=== PATIENT | male | born 1935 | race Caucasian/White ===

== ENCOUNTER 2016-05-21 06:37 | Emergency (ER) ==
[2016-05-21 06:57] VITALS: BP 151/86; TEMP 99
[2016-05-21 07:11] VITALS: BMI 33.3
[2016-05-21 07:27] LABS: BASOPHILS # (AUTO) 0.1 K/uL (0-0.2); BASOPHILS % (AUTO) 0.6 % (0.0-3.0); HEMATOCRIT 44.8 % (42.0-52.0); HEMOGLOBIN 14.5 g/dl (14.0-18.0); IMMATURE GRANULOCYTE % (AUTO) 0.9 % (0.0-5.0); LYMPHOCYTES # (AUTO) 0.3 K/uL (0.60-3.4); LYMPHOCYTES % (AUTO) 3.3 (10.0-50.0); MEAN CORPUSCULAR HEMOGLOBIN 28.3 pg (27.0-31.0); MEAN CORPUSCULAR HGB CONC 32.4 (31.8-35.4); MEAN CORPUSCULAR VOLUME 87.5 fl (80.0-94.0); MONOCYTES # (AUTO) 0.9 K/uL (0.4-2.0); MONOCYTES % (AUTO) 8.3 (0-10); NEUTROPHILS # (AUTO) 8.9 K/ul (2.0-6.9); NEUTROPHILS % (AUTO) 86.9; PLATELET COUNT 135 10^3/uL (140-440); RED BLOOD COUNT 5.12 10^6/ul (4.70-6.10); WHITE BLOOD COUNT 10.25 K/ul (4.2-10.2)
[2016-05-21 07:31] LABS: ABG BASE EXCESS 4 (-2.0-2.0); ABG HCO3 27.7 (22.0-26.0); ABG PCO2 37.8 mmHg (35-45); ABG PH 7.473 (7.35-7.45); ABG TCO2 29 (22.0-28.0)
[2016-05-21] MEDS ORDERED: BACTROBAN TP STA (08:01)
--- NOTE | 2016-05-21 08:02 | CT ---
EXAM: CT head without contrast. HISTORY: Initial presentation for head trauma due to a fall. COMPARISON: None. TECHNIQUE: Multiple axial images of the brain were obtained from the skull base through the vertex without intravenous contrast. FINDINGS: There is no intracranial hemorrhage or extraaxial collection. The sharif-white differentia tion is maintained without evidence for acute large vascular territory infarction. There are areas of periventricular and subcortical white matter low attenuation. The cortical sulci and cerebral ve ntricles are symmetrically enlarged. The basal cisterns are well visualized. There is no hydroceph alus, mass effect, or midline shift. The paranasal sinuses and mastoid air cells are clear. The ca lvarium is intact. Atherosclerotic calcifications are present. IMPRESSION: 1. No acute intracranial abnormality. 2. Chronic small vessel ischemic changes and atrophy.
[2016-05-21 08:07] LABS: BILIRUBIN,URINE Negative (NEGATIVE); KETONES,URINE 2+ (NEGATIVE); LEUKOCYTE ESTERASE ,URINE Negative (NEGATIVE); NITRITE,URINE Negative (NEGATIVE); PROTEIN,URINE 1+ (NEGATIVE); URINE, BLOOD 3+ (NEGATIVE)
[2016-05-21 08:08] LABS: ADD URINE MICROSCOPIC YES
[2016-05-21 08:19] LABS: ALBUMIN 3.6 g/dL (3.4-5.0); ALBUMIN/GLOBULIN RATIO 1.16; ANION GAP 17.4; BILIRUBIN,TOTAL 0.94 mg/dL (0.00-1.20); BUN/CREATININE RATIO 14.54; CALCIUM 9.3 mg/dL (8.2-10.2); CREATININE 1.1 mg/dL (0.60-1.10); POTASSIUM 4.4 mmol/L (3.5-5.1); TOTAL PROTEIN 6.7 g/dL (5.8-8.1); TROPONIN I 0.377 ng/ml (0.0000-0.4000)
--- NOTE | 2016-05-21 08:21 | CT ---
EXAM: CT scan cervical spine HISTORY: Fall COMPARISON: None. FINDINGS: Contiguous axial images obtained through the cervical spine utilizing 2-mm collimation. Sagittal and coronal reconstructions were imaged and reviewed.. The vertebral bodies are normal in height and alignment. Facet joints are intact. Degenerate disc disease is noted at C6-C7 and C7-T1 . There is multilevel central canal and foraminal narrowing. IMPRESSION: Degenerate disc disease most prominent C6-C7 and C7-T1. Multilevel central canal and foraminal stenosis without acute findings.
[2016-05-21 08:24] LABS: PROTHROMBIN TIME 24.5 SEC (9.3-11.0)
[2016-05-21 08:26] LABS: CREATINE KINASE MB 3.5 ng/ml (0.0-3.6)
--- NOTE | 2016-05-21 08:27 | CT ---
EXAM: CT scan thoracic spine HISTORY: Fall COMPARISON: None. FINDINGS: Contiguous axial images obtained through the thoracic spine utilizing 3-mm collimation. Sagittal coronal reconstructions were imaged and reviewed.. Several mild chronic wedge compression deformities are seen in the mid dorsal spine. Extensive ventral spondylitic changes are noted throu ghout the thoracic spine. No acute fracture or dislocation. Facet joints are intact. IMPRESSION: Stable mild chronic wedge compression deformities mid dorsal spine without acute findings. Multilevel spondylitic changes.
--- NOTE | 2016-05-21 08:27 | CT ---
EXAM: CT chest without contrast. HISTORY: Initial presentation for chest trauma due to a fall. COMPARISON: Radiograph 12/04/2011. TECHNIQUE: Multiple axial images of the chest were obtained without intravenous contrast. Images w ere reformatted in the sagittal and coronal planes. Three-dimensional reconstructed images were crea alejandra on an independent workstation. FINDINGS: Evaluation for lymphadenopathy is limited due to lack of intravenous contrast. Heart siz e is at the upper limits normal. No pericardial effusion identified. Atherosclerotic calcification s present. Calcified granulomatous changes noted bilaterally. There are nodular densities within the superior segment of the left lower lobe, most which are ill-defined. The largest discrete nodule measures 0. 4 cm on axial image 32. No pleural effusion or pneumothorax identified. Degenerative changes are present throughout the spine. Possible old left posterolateral ninth rib f racture. No acute rib fracture identified. Limited images of the upper abdomen demonstrate multipl e exophytic renal cortical lesions bilaterally, many of which measure fluid density, largest on the left measuring up to 6.8 x 5.7 cm. There is suggestion of a isodense mass in the left upper pole me asuring up to 5 cm on axial image 67 with internal density of 26 HU. Other lesions are also isodens e. The liver is diffusely low density. IMPRESSION: 1. No acute post-traumatic abnormality of the chest. 2. Left lower lobe nodules require follow-up CT in 6 months. 3. Indeterminate bilateral renal cortical lesions. Non-emergent abdominal MRI recommended for furt her evaluation.
--- NOTE | 2016-05-21 08:30 | CT ---
EXAM: CT lumbar spine without contrast. HISTORY: Initial presentation for back injury due to a fall. COMPARISON: None available. TECHNIQUE: Multiple axial images of the lumbar spine were obtained without intravenous contrast. I mages were reformatted in the sagittal and coronal planes. FINDINGS: Slight retrolisthesis of L5 on S1 suggested. Alignment is otherwise normal. Prevertebra l body heights are maintained. There is mild loss of disc height at L4-5. Disc heights are otherwi se normal. No fracture identified. Paravertebral soft tissues without acute abnormality. Multilev el disc osteophyte formation and facet arthropathy noted which cause mild central canal stenosis at L1-2 through L4-5 and cause generally minimal to mild neural foraminal narrowing throughout the lumb ar spine, greater in the lower lumbar spine. Paravertebral soft tissues without acute abnormality. Since the atherosclerotic calcifications present. Retroperitoneal clips noted. Exophytic renal co rtical lesions bilaterally are incompletely imaged, at least one which measures soft tissue density. IMPRESSION: 1. No acute fracture. 2. Generally mild degenerative changes. 3. Indeterminate renal cortical lesions. Abdominal MRI recommended for further evaluation.
--- NOTE | 2016-05-21 08:42 | CT ---
EXAM: CT scan pelvis without contrast HISTORY: Fall COMPARISON: None. FINDINGS: It was axial images obtained through the pelvis without contrast utilizing 3-mm collimati on. Sagittal and coronal reconstructions were imaged and reviewed.. There is moderate prostatic en largement with calcification along the posterior margin. There is diverticulosis diverticulitis. T here is moderate ASVD. There is moderate generalized osteopenia. Degenerative changes are seen in t he bilateral hips and lower lumbar spine. There is mild buckling of the lateral and medial cortical margins in the left supra-acetabular region which is likely related to sequela of old fracture Sag ittal images reveal a vertical lucency in the left supra-acetabular region which also may be related to chronic fracture however a subacute/acute fracture at the site is not excluded.. If symptoms ar e referable to this side MRI may be helpful for further characterization. IMPRESSION: Degenerative changes as described. Subtle findings in the left supra-acetabular region which may be related to remote fracture.. There is a vertical lucency seen only on sagittal images raising the possibility of superimposed subacute /acute fracture at this site. If symptoms are referable to this area suggest MRI for further charac terization.
--- NOTE | 2016-05-21 08:48 | ED.PDOC ---
General ED Provider: Dr. SANDRO DIEGO-ER Chief Complaint: Fall Stated Complaint: my legs are weak 2 days ago Time Seen by Physician: 06:45 Mode of Arrival: Ambulance Information Source: Patient, Family, EMT Exam Limitations: No limitations Primary Care Provider: NEVILLE WOOD Nursing and Triage Documentation Reviewed and Agree: Yes Neurological Complaint Exam - Weakness Complaint/Exam Last Known Well: 2 days ago Onset: Sudden Symptoms Are: Still present Timing: Constant Initial Severity: Mild Current Severity: Moderate Aggravating: Reports: None Alleviating: Reports: None Associated Signs and Symptoms: Reports: Short of air Cardiac Risk Factors: Reports: Hypertension, Diabetes CVA Risk Factors: Reports: None Related Surgical History: Reports: None JVD Present: No Carotid Bruit Present: No Glascow Coma Scale (see protocol): 15 Nystagmus Present: No Gag Reflex Present: Yes Meningeal Signs Positive: No Focal Weakness: Present: RLE, LLE Focal Sensory Loss: Present: RLE, LLE Gait: Ataxic [id number]: Normal Findings Romberg Test Positive: No Babinski Sign: Negative Right, Negative Left Heel to Toe Normal: Yes Worthington-Hallpike Test Positive: No Differential Diagnoses: Other Quality Indicator For Non-Traumatic Chest Pain/Syncope: EKG Performed Review of Systems - Review Of Systems Constitutional: Reports: No symptoms Eyes: Reports: No symptoms Ears, Nose, Mouth, Throat: Reports: No symptoms Respiratory: Reports: No symptoms Cardiac: Reports: No symptoms GI: Reports: No symptoms : Reports: No symptoms Musculoskeletal: Reports: No symptoms Skin: Reports: No symptoms Neurological: Reports: Numbness, Unable to move lower ext, Weakness Endocrine: Reports: No symptoms Hematologic/Lymphatic: Reports: No symptoms All Other Systems: Reviewed and Negative Past Medical History - Past Medical History Endocrine: Reports: DM 2 Cardiovascular: Reports: Hypertension Respiratory: Reports: COPD Hematological: Reports: Other Gastrointestinal: Reports: None Genitourinary: Reports: Unknown Neuro/Psych: Reports: None Musculoskeletal: Reports: Back Pain, Joint Pain Cancer: Reports: None - Surgical History General Surgical History: Reports: Unknown - Family History Family History: Reports: Unknown - Social History Smoking Status: Former smoker Hx Substance Use: No Alcohol Screening: None Lives: With family - Immunizations Tetanus Shot up to Date: No (unsure) Physical Exam - Physical Exam Appearance: Well-appearing, No pain distress, Well-nourished Eyes: SHIRAZ, EOMI, Conjunctiva clear ENT: Ears normal, Nose normal, Oropharynx normal Neck: Supple Respiratory: Airway patent Cardiovascular: RRR, Pulses normal, No rub, No murmur GI/: Soft Musculoskeletal: Normal strength Skin: Warm, Dry, Normal color Neurological: Alert, Oriented, Focal Deficit Psychiatric: Affect appropriate, Mood appropriate Interpretation - Radiology Interpretation Radiology Interpretation By: ED Physician Radiology Results: Negative Exam Interpreted: CT Scan - EKG Interpretation Time of EKG #1: 08:51 Rate: Normal Rhythm: Sinus Ectopy: None Fancy Gap: NL ST Segment: Normal Interpretation: nsr Re-Evaluation - Re-Evaluation Time of Re-Evaluation: 08:51 Status: Unchanged Vital Signs Stable: Yes Pain Level: 0 Appearance: NAD Lungs: Clear Skin: Warm and Dry Neuro: Alert and Oriented X3 CV: RRR Critical Care Note - Critical Care Note Total Time (mins): 0 Course - Course Hematology/Chemistry: 05/21/16 07:20 05/21/16 07:20 Orders, Labs, Meds: Lab Review 05/21/16 07:20 WBC 10.25 H RBC 5.12 Hgb 14.5 Hct 44.8 MCV 87.5 MCH 28.3 MCHC 32.4 RDW Coeff of Marissa 13.3 Plt Count 135 L Immature Gran % (Auto) 0.9 Neut % (Auto) 86.9 Lymph % (Auto) 3.3 L Marshall % (Auto) 8.3 Eos % (Auto) 0.0 Baso % (Auto) 0.6 Immature Gran # (Auto) 0.1 Neut # 8.9 H Lymph # 0.3 L Marshall # 0.9 Eos # 0.0 Baso # 0.1 PT 24.5 H INR 2.38 D-Dimer 1.39 Puncture Site R brach O2 Saturation 94.0 L ABG pH 7.473 H ABG pCO2 37.8 ABG pO2 67.0 L ABG HCO3 27.7 H ABG Total CO2 29 H ABG Base Excess 4 H Gustavo Test + FiO2 % 21.0 Sodium 132 L Potassium 4.4 Chloride 95 L Carbon Dioxide 24 Anion Gap 17.4 BUN 16 Creatinine 1.10 Estimated GFR (MDRD) 64.00 BUN/Creatinine Ratio 14.54 Glucose 341 H Hemoglobin A1c 8.1 H Calcium 9.3 Total Bilirubin 0.94 AST 26 ALT 24 Alkaline Phosphatase 46 L Total Creatine Kinase 314 CK-MB (CK-2) 3.5 CK-MB (CK-2) % 1.93397 Troponin I 0.3770 Total Protein 6.7 Albumin 3.6 Globulin 3.1 Albumin/Globulin Ratio 1.16 TSH 0.530 Urine Color Kaylin Urine Clarity Slightly Urine pH 6.0 Ur Specific Fate 1.015 Urine Protein 1+ Urine Glucose (UA) 2+ Urine Ketones 2+ Urine Blood 3+ Urine Nitrite Negative Urine Bilirubin Negative Urine Urobilinogen 0.2 Ur Leukocyte Esterase Negative Urine Microscopic RBC Tntc Ur Squamous Epith Cells Not present Orders Category Date Time Status ABG DRAW REQUEST Stat CARDIO 05/21/16 07:30 Completed EKG-(ED ONLY) Stat CARDIO 05/21/16 07:07 Completed Business Area Manager [ED [facility] TECH APPLIED] .ONCE EMERGENCY 05/21/16 07:09 Active Wound care [ED WOUND CARE] .ONCE EMERGENCY 05/21/16 08:01 Active ARTERIAL BLOOD GAS [ABG] Stat LAB 05/21/16 07:20 Completed CBC W/ AUTO DIFF Stat LAB 05/21/16 07:20 Completed COMPREHENSIVE METABOLIC PANEL Stat LAB 05/21/16 07:20 Completed CREATINE KINASE Stat LAB 05/21/16 07:20 Completed D-DIMER Stat LAB 05/21/16 07:20 Completed HEMOGLOBIN A1C Stat LAB 05/21/16 07:20 Completed PT WITH INR Stat LAB 05/21/16 07:20 Completed TROPONIN I Stat LAB 05/21/16 07:20 Completed TSH [THYROID STIMULATING HORMONE] Stat LAB 05/21/16 07:20 Completed URINALYSIS C & S IF INDICATED Stat LAB 05/21/16 07:20 Completed Mupirocin [Bactroban] MEDS 05/21/16 08:01 Discontinued 1 applic TP ONCE STA CT ABDOMEN/PELVIS WO CONTRAST Stat RADS 05/21/16 08:[address] CERVICAL SPINE W/O CONTRAST Stat RADS 05/21/16 07:[address] CHEST W/O CONTRAST Stat RADS 05/21/16 07:[address] HEAD W/O CONTRAST Stat RADS 05/21/16 07:[address] LUMBAR SPINE W/O CONTRAST Stat RADS 05/21/16 07:[address] PELVIS W/O CONTRAST Stat RADS 05/21/16 07:[address] THORACIC SPINE W/O CONTRAST Stat RADS 05/21/16 07:08 Completed Medications Discontinued Medications Generic Name Dose Route Start Last Admin Trade Name Tejas PRN Reason Stop Dose Admin Mupirocin 1 applic 05/21/16 08:01 05/21/16 08:06 Bactroban TP 05/21/16 08:02 1 applic ONCE STA Administration Vital Signs: Temp Pulse Resp BP Pulse Ox 05/21/16 06:37 99 F 86 22 151/86 H 95 Departure - Departure Time of Disposition: 08:51 Disposition: TSF SHORT-TRM HOSP Discharge Problem: Weakness of both lower extremities Instructions: Weakness (ED) Condition: Stable Pt referred to PMD for follow-up: Yes Allergies/Adverse Reactions: Allergies cephalexin [From Keflex] Adverse Reaction (Verified 05/21/16 07:36) Itching erythromycin base Adverse Reaction (Verified 05/21/16 07:36) Iodinated Contrast Media - Oral and Adverse Reaction (Verified 05/21/16 07:36) Unconsciousness levofloxacin [From Levaquin] Adverse Reaction (Verified 05/21/16 07:36) Hives Penicillins Adverse Reaction (Verified 05/21/16 07:36) Rash povidone-iodine [From Betadine] Adverse Reaction (Verified 05/21/16 07:36) procaine [From Novocain] Adverse Reaction (Verified 05/21/16 07:36) soap [From Betadine] Adverse Reaction (Verified 05/21/16 07:36) Sulfa (Sulfonamide Antibiotics) Adverse Reaction (Verified 05/21/16 07:36) Home Medications: Ambulatory Orders Albuterol Sulfate [Proair Hfa] 2 puff IH BID 05/21/16 Alprazolam [Xanax] 12.5 mg PO BID 05/21/16 Aspirin [Ecotrin] 81 mg PO DAILY 05/21/16 Atenolol 100 mg PO DAILY 05/21/16 Finasteride 5 mg PO DAILY 05/21/16 Fluticasone Propionate 220 Mcg [Flovent Hfa 220 Mcg] 2 puff INH BID 05/21/16 Fluticasone Propionate [Flovent Diskus] 50 mcg IH BID 05/21/16 Glipizide [Glipizide ER] 1 tab PO DAILY 05/21/16 Hydrochlorothiazide 12.5 mg PO DAILY 05/21/16 Lisinopril 20 mg PO DAILY 05/21/16 Metformin HCl [Glucophage] 500 mg PO DAILY 05/21/16 Pyridostigmine [place] 60 mg PO QID 05/21/16 Tamsulosin HCl [Flomax] 1 cap PO BID 05/21/16 Thiamine HCl [B-1] 100 mg PO DAILY 05/21/16 Warfarin Sodium [Coumadin] 4 mg PO DIRECTED 05/21/16 Warfarin Sodium [Coumadin] 5 mg PO DIRECTED 05/21/16 Transfer Form Completed: Yes Disposition Discussed With: Patient, Family
--- NOTE | 2016-05-21 09:04 | CT ---
EXAM: CT Abdomen without contrast. CT Pelvis without contrast. HISTORY: Initial presentation for abdominal trauma due to a fall. Hematuria. COMPARISON: None available. TECHNIQUE: Multiple axial images of the abdomen and pelvis were obtained without intravenous contra st. Images were reformatted in the coronal plane. FINDINGS: Please note that evaluation of the abdominal and pelvic structures is limited due to lack of intravenous contrast. Lung bases are grossly clear. Degenerative changes present throughout the spine. Subtle lucency in the superior left acetabulum on axial image 135-139 may relate to remote trauma. Liver is diffusely low density. Gallbladder is absent. The pancreas, spleen, adrenal glands are un remarkable. There is suggestion of a rounded isodense mass in the left upper pole collecting system measuring ro ughly 5 cm in diameter on axial image 42. Numerous additional exophytic lesions are seen in both ki dneys, many of which were fluid density although a few additional lesions are also isodense. Additi onally in the right perinephric fat laterally. There is a 2.2 x 2.1 cm soft tissue nodule on axial image 84. No calcified renal stones or hydronephrosis identified. No ureteral calculi are seen. B ladder appears unremarkable save for small diverticulum off the anterior wall on axial image 126. P rostate is enlarged measuring at least 8.1 x 6.3 x 5.9 cm with peripheral calcifications. Lipoma is seen in the rectum on axial image 122. There is no evidence for bowel obstruction. Divert icula are present in the sigmoid colon. The appendix is not seen. Small fat-containing umbilical he rnia noted. No free fluid or free air identified. A 0.6 cm perirectal lymph node noted on axial im age 89 small pelvic sidewall lymph nodes are present. Clips seen in the retroperitoneum. Extensiv e atherosclerotic calcifications are present. There is mild subcutaneous edema in the anterior righ t groin which is incompletely imaged. IMPRESSION: 1. No acute post-traumatic abnormality in the abdomen or pelvis. 2. Indeterminate renal cortical lesions bilaterally. Additional indeterminate right retroperitonea l soft tissue nodule. Correlation with non-emergent abdominal MRI recommended for further evaluatio n. 3. Marked prostatic enlargement. 4. Small urinary bladder diverticulum. 5. Diverticulosis. Rectal lipoma. 6. Fatty infiltration of the liver. 7. Question old left superior acetabular fracture. 8. Mild subcutaneous edema in the right groin. Correlate for contusion versus infection.
== END 2016-05-21 09:35 | disposition short-term general hospital (02) ==
LOC: ED 06:37
DX: R53.1 Weakness (principal); R06.02 Shortness of breath; I10 Essential (primary) hypertension; E11.9 Type 2 diabetes mellitus without complications; W19.XXXA Unspecified fall, initial encounter; Z79.01 Long term (current) use of anticoagulants; Z79.899 Other long term (current) drug therapy
CPT/HCPCS: 36415; 80053; 81001; 82550; 82553; 82803; 83036; 84443; 84484; 85025; 85379; 85610; 93005; 93010; 99285

== ENCOUNTER 2016-05-21 09:44 | Outpatient (CLI) ==
[2016-05-21 07:11] VITALS: BMI 33.3
== END 2016-05-21 09:45 ==
LOC: AMBL 09:44
PROVIDERS: ATTEND Family Medicine
DX: R06.9 Unspecified abnormalities of breathing (principal); R53.1 Weakness; W19.XXXA Unspecified fall, initial encounter

== ENCOUNTER 2016-06-02 12:47 | Outpatient (CLI) ==
[2016-06-02 13:55] LABS: BASOPHILS # (AUTO) 0.1 K/uL (0-0.2); BASOPHILS % (AUTO) 0.9 % (0.0-3.0); EOSINOPHILS # (AUTO) 0.1 K/ul (0.0-0.7); EOSINOPHILS % (AUTO) 2.1 % (0.0-7.0); HEMATOCRIT 41.2 % (42.0-52.0); HEMOGLOBIN 12.5 g/dl (14.0-18.0); IMMATURE GRANULOCYTE % (AUTO) 0.7 % (0.0-5.0); LYMPHOCYTES # (AUTO) 1.1 K/uL (0.60-3.4); MEAN CORPUSCULAR HEMOGLOBIN 28.5 pg (27.0-31.0); MEAN CORPUSCULAR HGB CONC 30.3 (31.8-35.4); MEAN CORPUSCULAR VOLUME 94.1 fl (80.0-94.0); MONOCYTES # (AUTO) 0.7 K/uL (0.4-2.0); MONOCYTES % (AUTO) 12.7 (0-10); NEUTROPHILS # (AUTO) 3.6 K/ul (2.0-6.9); NEUTROPHILS % (AUTO) 63.6; PLATELET COUNT 169 10^3/uL (140-440); RED BLOOD COUNT 4.38 10^6/ul (4.70-6.10); WHITE BLOOD COUNT 5.66 K/ul (4.2-10.2)
--- NOTE | 2016-06-02 13:59 | US ---
EXAM: Right lower extremity venous doppler. HISTORY: Right lower extremity pain and swelling. Previous deep vein thrombosis. Patient on antic oagulation. COMPARISON: None available. TECHNIQUE: Multiple grayscale and color doppler images were obtained. FINDINGS: There is normal flow, compressibility and augmentation of flow within the right common fe moral, greater saphenous, profunda, popliteal, anterior tibial and peroneal veins. There is intralum inal echogenicity with only partial color flow and compressibility within the mid to distal right dewitt perficial femoral vein. The right posterior tibial vein was not identified. Subcutaneous edema note d in the calf. IMPRESSION: Nonocclusive thrombus in the mid to distal right superficial femoral artery. Comment: Findings were communicated to Dr. Hargrove by the technologist at the time of exam ashish devries
[2016-06-02 14:14] LABS: ALBUMIN 2.9 g/dL (3.4-5.0); ALBUMIN/GLOBULIN RATIO 0.85; ANION GAP 10.4; BILIRUBIN,TOTAL 0.73 mg/dL (0.00-1.20); CALCIUM 9.3 mg/dL (8.2-10.2); CREATININE 0.95 mg/dL (0.60-1.10); POTASSIUM 4.4 mmol/L (3.5-5.1); TOTAL PROTEIN 6.3 g/dL (5.8-8.1)
== END 2016-06-02 12:48 | disposition home or self-care (01) ==
LOC: RAD 12:47
PROVIDERS: ATTEND Family Medicine
DX: I82.499 Acute embolism and thrombosis of other specified deep vein of unspecified lower extremity (principal); R60.0 Localized edema; D68.59 Other primary thrombophilia; L03.115 Cellulitis of right lower limb; Z79.01 Long term (current) use of anticoagulants
CPT/HCPCS: 36415; 80053; 85025

== ENCOUNTER 2016-06-06 17:48 | Inpatient (IN) | payer OTHER ==
[2016-06-06] MEDS ORDERED: XANAX PO PRN (18:46)
[2016-06-06] MEDS ORDERED: NITROSTAT SL PRN (18:46)
[2016-06-06] MEDS ORDERED: LASIX IVP ONE (19:00)
[2016-06-06 19:01] LABS: BASOPHILS # (AUTO) 0.1 K/uL (0-0.2); BASOPHILS % (AUTO) 1.2 % (0.0-3.0); EOSINOPHILS # (AUTO) 0.1 K/ul (0.0-0.7); EOSINOPHILS % (AUTO) 2.4 % (0.0-7.0); HEMATOCRIT 39.4 % (42.0-52.0); IMMATURE GRANULOCYTE % (AUTO) 0.2 % (0.0-5.0); LYMPHOCYTES % (AUTO) 20.2 (10.0-50.0); MEAN CORPUSCULAR HEMOGLOBIN 28.6 pg (27.0-31.0); MEAN CORPUSCULAR HGB CONC 30.5 (31.8-35.4); MONOCYTES # (AUTO) 0.6 K/uL (0.4-2.0); MONOCYTES % (AUTO) 10.8 (0-10); NEUTROPHILS # (AUTO) 3.3 K/ul (2.0-6.9); NEUTROPHILS % (AUTO) 65.2; PLATELET COUNT 130 10^3/uL (140-440); RED BLOOD COUNT 4.19 10^6/ul (4.70-6.10); WHITE BLOOD COUNT 5.09 K/ul (4.2-10.2)
[2016-06-06 19:21] LABS: PROTHROMBIN TIME 17.4 SEC (9.3-11.0)
[2016-06-06 19:25] LABS: ALBUMIN 2.9 g/dL (3.4-5.0); ALBUMIN/GLOBULIN RATIO 0.88; ANION GAP 12.3; BILIRUBIN,TOTAL 0.6 mg/dL (0.00-1.20); BUN/CREATININE RATIO 15.62; CALCIUM 9.1 mg/dL (8.2-10.2); CREATININE 0.96 mg/dL (0.60-1.10); POTASSIUM 4.3 mmol/L (3.5-5.1); TOTAL PROTEIN 6.2 g/dL (5.8-8.1)
[2016-06-06 20:21] VITALS: BMI 30.7
[2016-06-06] MEDS: COUMADIN PO SCH (20:56)
[2016-06-06] MEDS ORDERED: FLUTICASONE PROPIONATE 50 MCG IH SCH (21:00)
[2016-06-06] MEDS: FLOMAX PO SCH (21:09)
[2016-06-06] MEDS: PYRIDOSTIGMINE BROMIDE 60 MG PO SCH (21:09)
[2016-06-06] MEDS: PROAIR HFA IH SCH (21:09)
[2016-06-06] MEDS: FLONASE NAS SCH (21:09)
[2016-06-06] MEDS: FLOVENT HFA 220 MCG IH SCH (21:09)
[2016-06-07] MEDS ORDERED: TYLENOL PO STA (04:16)
[2016-06-07] MEDS ORDERED: SODIUM CHLORIDE IV SCH (09:00)
[2016-06-07] MEDS ORDERED: NON-FORMULARY MEDICATION (Atenolol [Atenolol] 100 MG) PO SCH ×22 (09:00)
[2016-06-07] MEDS ORDERED: NON-FORMULARY MEDICATION (Warfarin Sodium [Coumadin] 3 MG) PO SCH ×22 (09:00)
[2016-06-07] MEDS ORDERED: CLEOCIN IV SCH (09:00)
[2016-06-07] MEDS: LEVEMIR SUBCUT SCH ×2 (09:19→16:53)
[2016-06-07] MEDS: ASPIRIN EC PO SCH (09:20)
[2016-06-07] MEDS: PYRIDOSTIGMINE BROMIDE 60 MG PO SCH ×4 (09:21→20:30)
[2016-06-07] MEDS: PROSCAR PO SCH (09:21)
[2016-06-07] MEDS: FLOMAX PO SCH ×2 (09:21→20:30)
[2016-06-07] MEDS: THIAMINE PO SCH (09:22)
[2016-06-07] MEDS: TENORMIN PO SCH (09:22)
[2016-06-07] MEDS: VITAMIN D PO SCH (09:23)
[2016-06-07] MEDS: FLONASE NAS SCH ×2 (09:28→20:33)
[2016-06-07] MEDS: FLOVENT HFA 220 MCG IH SCH ×2 (09:29→20:31)
[2016-06-07] MEDS: PROAIR HFA IH SCH ×2 (09:30→20:31)
[2016-06-07] MEDS: CLEOCIN 600 MG in SODIUM CHLORIDE 50 ML IV SCH ×3 (09:47→20:28)
--- NOTE | 2016-06-07 13:01 | RS.OTINEVL ---
Subjective - Patient information Date of Evaluation: 06/07/16 Date of Arrival on Unit: 06/06/16 Admitted From:: Facility Transfer Usual Living Arrangement: Alone Living Arrangement Comments: Lives by self Home Environment: House, Ramp Medical History: COPD, Diabetes Medical History Comments:: DVT in superficial femoral artery Surgical History: Cholecystectomy Surgical History Comments:: cholecystectomy Subjective Information/ Patient Comments:: I tore this right rotator cuff years ago. I have been on blood thinners for 63 years. I am not able to walk much. - Level of function Prior to this admission, the patient could do the following:: Independent Selfcare, Partially Dependent Ambulation Abilities prior to this admission: Patient was transferring with rolling walker and by hanging on to his furniture in his home. Patient was able to transfer to the bathroom modified Independent. Pt gives himself a sponge bath. Current Level of Function: Partially Dependent Current Equipment Used at Home: 02@2l/nc at bedtime, Sp02 moniter, glucometer, w /c, scooter, special shoes, rollator, Elevated commode, grab bars, lift chair Pain Assessment - Pain Pain Score: 6 Side: right Pain Location Body Site: Shoulder Pain Aggravating Factors: ADL's, Standing, Walking Pain Alleviating Factors: Medication, Sitting Interventions - Objective Patient Orientation: Person, Place, Time, Situation Current Interventions: IV's Observation: Pt is very weak in his bilateral hands. Patient has atrophy in hands, weakness in shoulders as well as decreased AROM. Interventions - Strength Right Upper Extremity Strength: Severe Weakness Left Upper Extremity Strength: Mild Weakness - Sensation Right Upper Extremity Sensation: Intact/Normal Left Upper Extremity Sensation: Intact/Normal Comments:: Peripheral neuropathy Balance - Sitting Balance Static Sitting Balance: Fair Dynamic Sitting Balance: Fair - Standing Balance Static Standing Balance: Poor Dynamic Standing Balance: Poor ADL Skills - Self Feeding Self Feeding: Min Assist - Grooming Grooming: Min Assist - Bathing Bathing UE: Min Assist Bathing LE: Mod Assist - Dressing Dressing UE: Min Assist Dressing LE: Min Assist, Mod Assist - Toilet Management Toileting Management: Mod Assist Functional Mobility - Bed Mobility Rolling R/L: Min Assist Scooting: Min Assist Supine to Sit: Min Assist Sit to Supine: Min Assist - Transfers Sit to Stand: Max Assist, 2 person assist Stand to Sit: Max Assist, 2 person assist Stand Pivot Transfers: Max Assist, 2 person assist - Ambulation Weight Bearing Status: FWB Assistive Device Used: Gait belt Orthotic/Prosthetic Device: Yes (LLE orthotic) Assistance needed with Ambulation: Max Assist, 2 person assist - Safety Awareness Safety Awareness: Good Additional Treatment Performed - Additional units charged ADL: 15 - Time with patient Total treatment time: 27 Activities Patient Interests:: Watching Television, Visiting/Socializing Patient Education Patient Education: Education of diagnosis, Home Exercise Program, Activity Modification, Education of Plan of Care Teaching Recipient: Patient, Family Teaching Methods: Discussion Assessment Problem List:: Decreased level of function, Requires training/education, Decreased safety/Risk of falls, Weakness, Pain limits previous level of function Rehab Potential: Good Further Therapy Indicated?: Yes Short Term Goals - Goals GOAL 1: Pt to increase bed mobility to independent Goal to be met by: 06/14/16 GOAL 2: Pt to decrease RUE strength to 4-/5 in order to increase I of transfers. Goal to be met by: 06/14/16 GOAL 3: To decrease pain in RUE shoulder to 2/10. Goal to be met by: 06/14/16 Brand Marketing Intern Goals GOAL 1: Pt to increase functional mobility for ADLS transfers to Modified Ind. Goal to be met by: 06/21/16 GOAL 2: Pt to increase BUE strength to 4+/5. Goal to be met by: 06/21/16 GOAL 3: Pt to decrease pain to 0-2/10 with activity. Goal to be met by: 06/21/16 Plan Plan of Care: Therapeutic EX, Neuromuscular Re-Educ, Therapeutic Activity, Self- Care/Home Management Frequency of Treatment: 1-2 X day, as tolerated Duration of Treatment: 2 Weeks Anticipated Discharge Destination: Home
--- NOTE | 2016-06-07 14:27 | RS.BEDDYS ---
Subjective Date of Evaluation: 06/07/16 Date of Onset/Injury/Change in Status: 06/06/16 Current Level of Function: Pt can self-feed, may require meal set-up. Pt independent with stating wants and needs for therapy. Current Diet: Mechanical soft diet texture with thin liquids. Current Subjective/complaints:: Pt stated he wants to return home. Pt stated he does not want to participate in speech therapy services because it is not necessary to try to fix him. Medical History Comments:: COPD. Diabetes. Hx Home Medications: Refer to medication list and nursing notes for complete current list. Patient's Goals: Pt to return home with mechanical soft diet texture and thin liquids. General Information - General Patient Orientation: Person, Place, Time, Situation Ability to Follow Directions: Excellent Is Patient able to Repeat Directions?: Yes Oral Expression Ability: No Impairment - Voice Voice Quality: Breathy (Pt with strangled voice ) Voice Pitch: Normal Voice Loudness: Normal Oral-Facial Assessment - Face Facial Symmetry: Symmetrical Facial Movement: Controlled - Dental/Labial Mouth Occlusion: Normal Teeth Characteristics: Missing, Broken, Spaces Teeth Comment: Upper dentition in poor condition. Lip Protrusion: Normal Lip Retraction: Normal Puff Cheeks: Normal - Lingual Protrusion: Normal Retraction: Normal Tip Lateralization: Normal Repeated Tip Lateralization: Normal Tip Elevation: Normal Repeated Tip Elevation: Normal - Palate and Pharynx Soft Palate Description: Normal Color Hard Palate Description: Normal Color Gag Reflex Response: Normal Velopharyngeal Movement: Normal Food Presentation - Solids Food Presented: Mechanical Soft (Via cracker finger foods only) Behaviors/Comments: Pt with mild discoordination of rotary chew, minimal prolongation of mastication. Minimal difficulty with bolus formation. WNL with swallow response. - Liquids Liquid Presented: Thin (Via straw) Behaviors/Comments: Three trials of thin liquids presented. Pt controlled sips of liquid. No overt s/s of aspiration noted. Clear vocal quality post swallow. Swallow response of 2 seconds. - Recommendations: Dysphagia Evaluation Dietary Recommendations: Dysphagia Mechanical Soft Dysphagia Swallow Precautions/Strategies: Sitting Upright (90 deg), Liquids from Cup, Liquids from Straw, Small Bites and Sips, Alternate Liquids/Solids - Summary Dysphagia Evaluation Summary: HYBRID CORN BREEDER recommends pt to have mechanical soft diet texture with thin liquids. Pt has no overt s/s with mechanical soft and thin liquids. No mixed consistencies to be presented to pt due to risk of aspiration. Pt demonstrated 1-2 second swallow delay with dry swallow and liquids/solids. HYBRID CORN BREEDER noted pt with decreased laryngeal elevation. Monitor pts lung sounds and follow safe swallow precautions. Pt able to consume PO intake independently. Further Therapy Indicated?: No Functional Reporting G Codes: CK 40-59% Level 4 Severity Impairment Rationale: Pt is on mechanical soft diet texture. Plan Duration of Treatment: One Time Treatment Anticipated Discharge Destination: Home - Treatment Code (1) Dysphagia Qualifiers: Dysphagia type: unspecified Qualified Description: Dysphagia, unspecified type Qualifier Code(s): (R13.10) Dysphagia, unspecified
[2016-06-07] MEDS ORDERED: LOVENOX SUBCUT STA (15:39)
--- NOTE | 2016-06-07 15:59 | RS.PTINEVL ---
Subjective - Patient information Date of Evaluation: 06/07/16 Date of Arrival on Unit: 06/06/16 Usual Living Arrangement: Alone Home Environment: House, Ramp Medical History: Hypertension, CVA/TIA, COPD, Diabetes Medical History Comments:: Myasthenia Gravis, Peripheral Neuropathy, chronic DVT right LE Subjective Information/ Patient Comments:: Patient states he does not walk much at all. He transfers himself to and from bed, w/c, scooter. He has rails to use around the house for transfers. Family states he does walk a small distance to the bathroom at home. - Level of function Prior to this admission, the patient could do the following:: Independent Selfcare, Partially Dependent Ambulation Current Level of Function: Partially Dependent Current Equipment Used at Home: 02@2l/nc at bedtime, Sp02 moniter, glucometer, w /c, scooter, special shoes, rollator, Elevated commode, grab bars, lift chair Interventions - Objective Patient Orientation: Person, Place, Time, Situation Observation: right LE is red from the toes to mid lower leg. Left lower leg has dressing in place over ulcer. Range of Motion - ROM Comments:: Right UE is limited due to pain and weakness. right shoulder AROM to approximately 100 degrees flexion or scaption. Bilateral hip and knee AROM is WFL's. bilateral ankle AROM is limited. Muscle Strength - Muscle Strength Comments:: Demonstrates significant weakness in the right UE, mild weakness in the left. Bilateral hands demonstrate muscle atrophy. Bilateral LE strength at least 3/5 . Sensation - Sensation Comments: Peripheral Neuropathy Balance - Sitting Balance and Reactions Static Sitting Balance: Good Dynamic Sitting Balance: Good (-) - Standing Balance and Reactions Static Standing Balance: Poor Dynamic Standing Balance: Poor Functional Mobility - Bed Mobility Scooting: CGA, Min Assist, 2 person assist, Verbal Cues, Tactile Cues Supine to Sit: Min Assist, Mod Assist, 2 person assist, Verbal Cues, Tactile Cues Comments:: patient wants to do things for himself. He is able to use UE's to scoot himself to the edge of the bed with assistance. - Transfers Sit to Stand: Mod Assist, 2 person assist Stand to Sit: Mod Assist, 2 person assist Stand Pivot Transfers: Mod Assist, 2 person assist Comments:: Patient gives instructions for staff to hold down walker and he will stand up. He does need assistance for sit to stand. Shoes on patient for transfers. - Safety Awareness Safety Awareness: Fair Ambulation - Ambulation Weight Bearing Status: FWB Assistive Device Used: Standard Walker Distance: to chair (stand pivot 1-2 steps) Assistance needed with Ambulation: Mod Assist, 2 person assist Treatment time - Time with patient Total treatment time: 24 (mins) Assessment - Assessment Problem List:: Decreased level of function, Requires training/education, Decreased safety/Risk of falls, Weakness Rehab Potential: Good Further Therapy Indicated?: Yes Short Term Goals GOAL #1: Supine to sit with CGA of one. Goal to be met by: 06/12/16 GOAL #2: Sit to stand with minimal assistance of one. Goal to be met by: 06/12/16 GOAL #3: Stand pivot transfers with Minimal assistance of 2 w/ walker. Goal to be met by: 06/14/16 Electrophysiology Technologist Goals GOAL #1: All bed mobility independent. Goal to be met by: 06/21/16 GOAL #2: All transfers with SBA to independent with good safety. Goal to be met by: 06/21/16 GOAL #3: Amb. very short distances with AAD and SBA. Goal to be met by: 06/21/16 Plan Plan of Care: Therapeutic EX, Neuromuscular Re-Educ, Therapeutic Activity, Self- Care/Home Management Frequency of Treatment: 1-2 X day, as tolerated Duration of Treatment: 2 Weeks Anticipated Discharge Destination: Home
[2016-06-07] MEDS: COUMADIN PO SCH (16:50)
[2016-06-07] MEDS: [UNRECOGNIZED DRUG - OTHER] TP SCH ×2 (16:52→20:29)
[2016-06-07] MEDS: SILVADENE CREAM TP SCH (20:29)
[2016-06-07] MEDS ORDERED: LOVENOX SUBCUT SCH (21:00)
[2016-06-08] MEDS: CLEOCIN 600 MG in SODIUM CHLORIDE 50 ML IV SCH ×3 (04:34→21:30)
[2016-06-08 05:48] LABS: PROTHROMBIN TIME 17.2 SEC (9.3-11.0)
[2016-06-08] MEDS ORDERED: LOVENOX SUBCUT SCH (09:00)
[2016-06-08] MEDS: PYRIDOSTIGMINE BROMIDE 60 MG PO SCH ×4 (09:45→21:32)
[2016-06-08] MEDS: THIAMINE PO SCH (09:45)
[2016-06-08] MEDS: FLOMAX PO SCH ×2 (09:45→21:32)
[2016-06-08] MEDS: PROSCAR PO SCH (09:46)
[2016-06-08] MEDS: VITAMIN D PO SCH (09:46)
[2016-06-08] MEDS: TENORMIN PO SCH (09:46)
[2016-06-08] MEDS: [UNRECOGNIZED DRUG - OTHER] TP SCH ×4 (09:46→21:34)
[2016-06-08] MEDS: ASPIRIN EC PO SCH (09:46)
[2016-06-08] MEDS: SILVADENE CREAM TP SCH ×2 (09:47→21:34)
[2016-06-08] MEDS: FLONASE NAS SCH ×2 (09:48→21:33)
[2016-06-08] MEDS: PROAIR HFA IH SCH ×2 (09:48→21:32)
[2016-06-08] MEDS: FLOVENT HFA 220 MCG IH SCH ×2 (09:48→21:33)
[2016-06-08] MEDS: LEVEMIR SUBCUT SCH ×2 (10:02→17:40)
--- NOTE | 2016-06-08 11:50 | RS.DYSPHTX ---
Dysphagia Treatment Note Date of Note: 06/08/16 Visit #: 1 Time of Treatment: 10:45 Subjective: Pt agreeable to participate in skilled ST services. Pt alert and sitting upright in chair. Pt reported mild discomfort with pain, and requested to get back in bed. Pt reported no concerns or difficulty with mechanical soft diet texture. LIGHTER questioned pt about incorporating finger foods on diet tray to increase independence with meals, however pt refused. Total treatment time: 35 - Short Term Goals Goal #1: Pt will complete laryngeal elevation strengthening exercises with 80% acc. Activity/Accuracy: Pt completed three trials of four repetions. Pt sustianed high pitch /e/ for four seconds, requiring a model for 50% accuracy. Kimberlyn attempted 4x with 1x success holding for 1/2 second. Repetive high pitch /e/ completed with mild difficulty. Goal #2: Pt to improve respiratory support from moderate to mild difficulty. Activity/Accuracy: LIGHTER educated and trained pt on diaphragmatic breathing techniques, use of diaphragm, clavicle breathing, and lung anatomy and physiology. Pt completed two trials of breathing techniques, given a model, with moderate difficulty. Goal #3: Pt will complete base of tongue strengthening exercises with 90% acc. Activity/Accuracy: LIGHTER educated pt on BOT anatomy and physiology. LIGHTER modeled three exercises for pt to complete independently. Pt repeated exercises, yawning , scratching back of throat, and gargling. - Intermediate Goals Goal #1: Pt to improve laryngeal elevation strength. Goal #2: Pt to improve respiratory support with diaphragmatic breathing techniques Goal #3: Pt to improve base of tongue strength to increase coordination with swallow Assessment: LIGHTER assessed pt with thin liquids via straw. No overt s/s of aspiration noted. pt reported adequate awareness with use of safe swallow strategies with straw. Verbal report of meal intake completed. Pt reported need for caregiver to feed him, however was independent with taking drinks of liquids. Oral care assessment completed. Pt with limited oral care routine, but demonstrated oral care techniques. - Units Charged Swallowing Therapy: 2 - Plan Frequency of Treatment: QD Duration of Treatment: 2 Weeks
--- NOTE | 2016-06-08 14:54 | HP ---
SOURCE: The source of this information is prior knowledge of the patient, review of his office records as well as discussion with individuals and patient mentioned; all seemed reliable. PATIENT PROFILE: Mr. Anderson is an 81-year-old male resident of the [facility]. He was cooperative. CHIEF COMPLAINT: "His leg is getting worse." BRIEF HISTORY OF PRESENT ILLNESS: This gentleman has chronic lower extremity edema and stasis and stasis dermatitis. He has years of reoccurring and chronic DVT of the lower extremities. He has either a protein S or C deficiency discovered at an early age. He has been on anticoagulation/Coumadin for almost all of his life. He was recently hospitalized at [facility] by Dr. Keenan in my absence. He got out May 21 for an ulcer on his left leg and suspected cellulitis. He also had some redness of the right leg at the time. He required ICU transfer during that stay because he became acutely short of breath and is probably because his myasthenia gravis medicines were inadvertently held briefly. He has been seen in the office since that admission, was getting home health wound care and was actually getting some closure of the wound on his left leg. the day of admission however the home health nurse called and said his right lower leg swelling was worsening, it was staying red. There is no mention of any fever or systemic symptoms such as vomiting or nausea but at the same time we felt he was going to do very badly without increased intervention. He qualified for the swing bed on his recent acute stay; his daughter was contacted, discussed the options with the patient and he did elect to come into the swing bed for IV antibiotics, leg elevation, IV diuretics, wound care and just closer observation than what he has been able to have at home. Also if his INRs are nontherapeutic we planned to even use some Lovenox briefly. PAST HISTORY: CHILDHOOD: Normal;unremarkable. ALLERGIES/INTOLERANCE: IV LEVAQUIN (WELTS), KEFLEX (ITCHING), MYCINS, NORVASC ( HIVES), NOVACAINE (SHORTNESS OF BREATH BUT DID OKAY WITH LIDOCANE), PENICILLIN ( RASH), X-RAY DYE (SYNCOPE) CURRENT MEDICATIONS: 1. Xanax/Alprazolam 0.25 mg p.o. b.i.d. as needed 2. Aspirin 81 mg one a day 3. Tenormin 100 mg one a day 4. Vitamin D3 1000 international units once a day 5. Recent Cleocin 150 mg three times a day 6. Cyanocobalamin 1000 mcg SQ every 2 weeks 7. Proscar 5 mg once a day 8. Flovent 220 mcg/inhalation two puffs a day 9. Flonase 50 mcg/inhalation each nostril a day 10. Levemir 15 units SQ every 12 hours 11. Nitrostat 0.4 mg Sublingual p.r.n. 12. ProAir HFA 90 mcg/inhalation two puffs four times a day as needed 13. Mycelin 60 mg four times a day 14. Flomax 0.4 mg twice a day 15. Vitamin B1 100 mg once a day 16. Coumadin 3 mg a day HOSPITALIZATIONS/SURGERIES/PROCEDURES: Recent admission by Dr. Keenan and [facility] 05/23 through 08/06/03, Dr. Keenan, for kidney stone as well as cysto and stent by Dr. Ty during that stay. He had a [facility] admission 09/05 through 09/08/06 for bronchitis. A recent admission by Dr. Keenan at [facility] discharged on 05/21/16. FAMILY HISTORY: Phlebitis in daughter, son and grandson; lung cancer in father; thick blood in mother and melanoma in a brother. HABITS: A smoker, age 18, stopping at age 19. SOCIAL HISTORY: in 1954; his 11/29/06. He has three children and three stepchildren or adopted children. His primary caregiver is his son who lives very near him. REVIEW OF SYSTEMS: GENERAL: There has been no injury or fever. INTEGUMENT: The right leg has been swollen and red. There is an ulcer on the medial aspect on the left that is slowly healing. He usually has scaly lower extremities and thickened nails. HEENT: No headache, visual change. NECK: No mass or pain. CHEST: No cough or wheeze. CARDIOVASCULAR: No chest pain or palpitations. Edema is noted. GI: No dysphagia. No nausea or vomiting. No diarrhea. No melena. : He says he is voiding to completion. He did have Dr. Caldwell see him on his last [facility] admission for renal mass that was suspicious for renal cell carcinoma. MUSCULOSKELETAL/NEUROLOGIC: He chronically has weakness of the extremities. He uses a rolling walker, sometimes a wheelchair. PSYCHIATRIC: He remains alert and oriented times three despite his weakness of extremities. PHYSICAL EXAMINATION: VITALS: Height 6'2", weight 239 pounds. Pulse 72, respirations 12, BP 132/80, afebrile. GENERAL: Appropriate for age, well-kept white male in no obvious distress. INTEGUMENT: Somewhat taut right lower extremity, knee distal is slightly red. Minimal scaling particularly about the toes and feet. Left has significant scaling particularly in the toes and feet. There is a fifty cent size clean based ulcer on the medial malleolus with no odor. The toenails are thick and brittle in their entirety. Male pattern baldness. Eyegrounds are pink, nonicteric sclerae. HEENT: Facial symmetry. Pupils equal, round, extraocular movements intact. NECK: No visible lymphadenopathy, thyromegaly, mass seen or felt and supple. . CHEST: Clear. CARDIOVASCULAR: S1, S2 without murmur or carotid bruit. Distal pulses are present both feet. GI: Soft. No rebound, guarding or mass. Overweight. : Deferred. MUSCULOSKELETAL/NEUROLOGIC: Marked interosseous muscle wasting particularly noticeable of the hands. Children'S Minister are weak. PSYCHIATRIC: Alert, oriented times three. Pleasant purposeful conversation with insight and short and [facility] memory through his history in conversation. ASSESSMENT/PROBLEM LIST: 0. 81-year-old white male, advanced age. 1. Allergies/intolerances - see above. 2. Procedural history - see above. 3. Family history - see above. 4. History of recurring DVT lower extremities. 5. Chronic anticoagulation - currently Coumadin approximately 1957. 6. Previous smoker - briefly. 7. Chronic leg ulcers and others. 8. Stasis dermatitis. 9. Mycotic nails. 10. Obesity. 11. Hypertension. 12. History of CVA, TIA. 13. Angina. 14. History of GERD. 15. Type 2 diabetes - June 2001. 16. Peripheral neuropathy - possible B12 involvement. 17. B12 deficiency. 18. Myasthenia. 19. Hyperlipidemia. 20. Diastolic dysfunction on 2001. 21. History of urolithiasis - 2003 (then on the left). 22. Gait difficulties from multiple reasons. 23. Prostatism. 24. 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 25. Nocturnal hypoxemia - recently found. 26. Renal cell mass - evaluation not complete and deferred by the patient. REASON FOR ADMISSION: # Right lower extremity cellulitis - possible # Left lower extremity ulcer - probably diabetic ulcer with stasis components # Right lower extremity edema that is complicating our outpatient care PLANS: 1. IV antibiotics with leg elevation and even brief diuretics if needed to diminish the swelling and help perfusion and a chance to make the leg less red and sore and likely for cellulitis. 2. Monitor labs particularly the INR and if non therapeutic consider Lovenox at least briefly. 3. PT/OT. 4. Will have to monitor and order labs. 5. Discharge planning from the onset; at this point felt to be probably home even though this could be influenced on anything that might happen. MTDD
[2016-06-08] MEDS: COUMADIN PO SCH (17:40)
[2016-06-09] MEDS: CLEOCIN 600 MG in SODIUM CHLORIDE 50 ML IV SCH ×3 (04:13→20:01)
[2016-06-09 05:32] LABS: PROTHROMBIN TIME 18.2 SEC (9.3-11.0)
[2016-06-09] MEDS: LEVEMIR SUBCUT SCH ×2 (09:43→17:34)
[2016-06-09] MEDS: PYRIDOSTIGMINE BROMIDE 60 MG PO SCH ×4 (09:43→20:02)
[2016-06-09] MEDS: FLOMAX PO SCH ×2 (09:44→20:02)
[2016-06-09] MEDS: ASPIRIN EC PO SCH (09:45)
[2016-06-09] MEDS: TENORMIN PO SCH (09:45)
[2016-06-09] MEDS: PROSCAR PO SCH (09:45)
[2016-06-09] MEDS: VITAMIN D PO SCH (09:45)
[2016-06-09] MEDS: FLOVENT HFA 220 MCG IH SCH ×2 (09:46→20:03)
[2016-06-09] MEDS: SILVADENE CREAM TP SCH ×3 (09:46→20:04)
[2016-06-09] MEDS: [UNRECOGNIZED DRUG - OTHER] TP SCH ×4 (09:46→20:04)
[2016-06-09] MEDS: FLONASE NAS SCH ×2 (09:46→20:03)
[2016-06-09] MEDS: PROAIR HFA IH SCH ×2 (09:46→20:03)
[2016-06-09] MEDS: THIAMINE PO SCH (09:47)
--- NOTE | 2016-06-09 11:01 | RS.DYSPHTX ---
Dysphagia Treatment Note Date of Note: 06/09/16 Visit #: 3 Time of Treatment: 10:05 Subjective: Pt sitting upright in recliner independently consuming small snack. No overt s/s of aspiration noted with pudding texture. Pt reported SOB this a.m. , due to prior activities with OT. Pt was wearing nasal cannula throughout ST session. SUPERVISOR PURIFICATION questioned pt about a.m. meal and pt reported no difficulty with ground meat texture covered in gravy. SUPERVISOR PURIFICATION educated pt regarding bread textures and provided examples of how to safely consume textures. Pt reported minimal difficulty with bread this a.m. Total treatment time: 30 - Short Term Goals Goal #1: Pt will complete laryngeal elevation strengthening exercises with 80% acc. Activity/Accuracy: Goal not completed this date. Goal #2: Pt to improve respiratory support from moderate to mild difficulty. Activity/Accuracy: SUPERVISOR PURIFICATION provided verbal education and training about diaphragmatic breathing techniques. SUPERVISOR PURIFICATION demonstrated technique with requesting pt to demonstrate [id number] during the acitivity. SUPERVISOR PURIFICATION provided verbal, visual , and tactile cues to increase pts awareness of activity. Pt completed three trials with mild difficulty on inhalation and moderate difficulty on exhalation. SUPERVISOR PURIFICATION educated pt on accuracy with inhalation vs exhalation. Goal #3: Pt will complete base of tongue strengthening exercises with 90% acc. Activity/Accuracy: Pt completed g/k sound imitation over 10 reps with minimal difficulty. SUPERVISOR PURIFICATION increased difficulty to t/g over ten reps, pt with mild- moderate difficulty. SUPERVISOR PURIFICATION introduced diadochokinetic rate task. Pt completed ten reps with moderate difficulty, and required a break at 5 reps due to SOB. - Chcf Goals Goal #1: Pt to improve laryngeal elevation strength. Goal #2: Pt to improve respiratory support with diaphragmatic breathing techniques Goal #3: Pt to improve base of tongue strength to increase coordination with swallow Assessment: Pt had a.m. medications in room. SUPERVISOR PURIFICATION assessed pt swallowing medications. Pt had 2x cough while taking medications. SUPERVISOR PURIFICATION questioned pts self- awareness of medication difficulty. Pt reported medication sticking in laryngeal area, but stated he cleared medicine with a drink of liquid. SUPERVISOR PURIFICATION educated pt on strategies to utilize for safe swallowing with medicine. Pt recalled strategies independently. - Units Charged Swallowing Therapy: 2 - Plan Frequency of Treatment: 3-4x a week Duration of Treatment: 1 Week
[2016-06-09] MEDS: COUMADIN PO SCH (17:34)
[2016-06-10] MEDS: CLEOCIN 600 MG in SODIUM CHLORIDE 50 ML IV SCH ×3 (04:34→20:35)
[2016-06-10 05:36] LABS: PROTHROMBIN TIME 18.9 SEC (9.3-11.0)
[2016-06-10] MEDS: PROAIR HFA IH SCH (08:08)
[2016-06-10] MEDS: FLOVENT HFA 220 MCG IH SCH ×2 (08:08→21:02)
[2016-06-10] MEDS: FLONASE NAS SCH ×2 (08:08→21:01)
[2016-06-10] MEDS: SILVADENE CREAM TP SCH ×2 (08:09→20:36)
[2016-06-10] MEDS: VITAMIN D PO SCH (08:09)
[2016-06-10] MEDS: TENORMIN PO SCH (08:09)
[2016-06-10] MEDS: PROSCAR PO SCH (08:10)
[2016-06-10] MEDS: THIAMINE PO SCH (08:10)
[2016-06-10] MEDS: ASPIRIN EC PO SCH (08:10)
[2016-06-10] MEDS: PYRIDOSTIGMINE BROMIDE 60 MG PO SCH ×4 (08:10→20:34)
[2016-06-10] MEDS: LEVEMIR SUBCUT SCH ×2 (08:10→17:22)
[2016-06-10] MEDS: FLOMAX PO SCH ×2 (08:11→20:34)
[2016-06-10] MEDS: [UNRECOGNIZED DRUG - OTHER] TP SCH ×4 (08:13→20:35)
[2016-06-10] MEDS ORDERED: PROAIR HFA IH PRN (09:40)
[2016-06-10] MEDS: COUMADIN PO SCH (17:21)
[2016-06-10] MEDS: DUONEB NEB SCH ×2 (18:55→23:17)
[2016-06-11] MEDS: CLEOCIN 600 MG in SODIUM CHLORIDE 50 ML IV SCH (04:53)
[2016-06-11] MEDS: DUONEB NEB SCH ×4 (05:25→23:08)
[2016-06-11] MEDS: [UNRECOGNIZED DRUG - OTHER] TP SCH ×4 (08:04→20:42)
[2016-06-11] MEDS: PYRIDOSTIGMINE BROMIDE 60 MG PO SCH ×4 (08:04→20:37)
[2016-06-11] MEDS: FLOMAX PO SCH ×2 (08:05→20:36)
[2016-06-11] MEDS: VITAMIN D PO SCH (08:05)
[2016-06-11] MEDS: THIAMINE PO SCH (08:05)
[2016-06-11] MEDS: ASPIRIN EC PO SCH (08:05)
[2016-06-11] MEDS: TENORMIN PO SCH (08:05)
[2016-06-11] MEDS: PROSCAR PO SCH (08:05)
[2016-06-11] MEDS: LEVEMIR SUBCUT SCH ×2 (08:05→17:02)
[2016-06-11] MEDS: FLONASE NAS SCH ×2 (08:06→20:37)
[2016-06-11] MEDS: SILVADENE CREAM TP SCH ×2 (08:07→20:42)
[2016-06-11] MEDS: FLOVENT HFA 220 MCG IH SCH ×2 (08:07→20:37)
[2016-06-11] MEDS: CLEOCIN 600 MG in SODIUM CHLORIDE 100 ML IV SCH ×2 (12:00→20:39)
[2016-06-11] MEDS ORDERED: MICRO-K CAP PO STA (12:00)
[2016-06-11] MEDS ORDERED: LASIX IVP STA (12:00)
[2016-06-11] MEDS: TYLENOL PO PRN (12:10)
[2016-06-11] MEDS: COUMADIN PO SCH (17:01)
[2016-06-12] MEDS: TYLENOL PO PRN (01:22)
[2016-06-12 05:31] LABS: PROTHROMBIN TIME 20.8 SEC (9.3-11.0)
[2016-06-12] MEDS: CLEOCIN 600 MG in SODIUM CHLORIDE 100 ML IV SCH ×3 (05:32→21:39)
[2016-06-12] MEDS: DUONEB NEB SCH ×4 (05:40→23:21)
[2016-06-12 05:43] LABS: ALBUMIN 2.7 g/dL (3.4-5.0); ALBUMIN/GLOBULIN RATIO 0.82; ANION GAP 10.3; BILIRUBIN,TOTAL 0.67 mg/dL (0.00-1.20); BUN/CREATININE RATIO 20.93; CREATININE 0.86 mg/dL (0.60-1.10); POTASSIUM 4.3 mmol/L (3.5-5.1)
[2016-06-12] MEDS: [UNRECOGNIZED DRUG - OTHER] TP SCH ×4 (08:15→21:37)
[2016-06-12] MEDS: SILVADENE CREAM TP SCH ×2 (08:15→21:38)
[2016-06-12] MEDS: PYRIDOSTIGMINE BROMIDE 60 MG PO SCH ×4 (08:16→21:38)
[2016-06-12] MEDS: PROSCAR PO SCH (08:16)
[2016-06-12] MEDS: THIAMINE PO SCH (08:16)
[2016-06-12] MEDS: FLOMAX PO SCH ×2 (08:17→21:38)
[2016-06-12] MEDS: ASPIRIN EC PO SCH (08:17)
[2016-06-12] MEDS: TENORMIN PO SCH (08:17)
[2016-06-12] MEDS: VITAMIN D PO SCH (08:18)
[2016-06-12] MEDS: FLOVENT HFA 220 MCG IH SCH ×2 (08:18→21:37)
[2016-06-12] MEDS: FLONASE NAS SCH ×2 (08:20→21:37)
[2016-06-12] MEDS: LEVEMIR SUBCUT SCH ×2 (08:23→17:53)
[2016-06-12] MEDS ORDERED: LASIX IVP STA (16:53)
[2016-06-12] MEDS: COUMADIN PO SCH (17:54)
[2016-06-12] MEDS ORDERED: CLEOCIN ONE (20:43)
[2016-06-13] MEDS: CLEOCIN 600 MG in SODIUM CHLORIDE 100 ML IV SCH ×3 (04:40→20:34)
[2016-06-13 04:54] LABS: PROTHROMBIN TIME 19.7 SEC (9.3-11.0)
[2016-06-13] MEDS: DUONEB NEB SCH ×3 (05:20→18:07)
[2016-06-13] MEDS ORDERED: LASIX TAB PO ONE (06:30)
[2016-06-13] MEDS: LEVEMIR SUBCUT SCH ×2 (08:14→16:53)
[2016-06-13] MEDS: ASPIRIN EC PO SCH (08:15)
[2016-06-13] MEDS: FLONASE NAS SCH ×2 (08:16→20:33)
[2016-06-13] MEDS: FLOMAX PO SCH ×2 (08:16→20:36)
[2016-06-13] MEDS: [UNRECOGNIZED DRUG - OTHER] TP SCH ×4 (08:17→20:37)
[2016-06-13] MEDS: FLOVENT HFA 220 MCG IH SCH ×2 (08:17→20:34)
[2016-06-13] MEDS: PROSCAR PO SCH (08:20)
[2016-06-13] MEDS: PYRIDOSTIGMINE BROMIDE 60 MG PO SCH ×4 (08:20→20:36)
[2016-06-13] MEDS: SILVADENE CREAM TP SCH ×2 (08:21→20:37)
[2016-06-13] MEDS: TENORMIN PO SCH (08:22)
[2016-06-13] MEDS: VITAMIN D PO SCH (08:23)
[2016-06-13] MEDS: THIAMINE PO SCH (08:23)
--- NOTE | 2016-06-13 14:24 | PN ---
DATE OF VISIT: 06/09/16 SUBJECTIVE: This gentleman was admitted with significant swelling and redness of the right lower extremities; being somewhat suggestive for cellulitis. He has chronic stasis and DVT of that lower extremity despite chronic anticoagulation; with a protein C deficiency and a hypercoagulable state all of his adult life. He also had a ulcer for months on his left medial malleolus that has been getting home health therapy and gradually healing. I was concerned about his abilities to deal with the edema and that the intermittent nursing care that he was getting was not going to be enough. Since here we have used IV Cleocin and even Lasix, kept his legs elevated and the amount of swelling has gone down appreciably. He said his right leg is less sore and he is pleased that he feels better. He has been receiving PT/OT and even speech; he has myasthenia gravis with marked difficulties in ambulation. OBJECTIVE: V/S: Temperature 98.4, pulse 64, BP 164/78 (114/60), respirations 18, 02 sat 96 % on 2L/NC. CHEST: Clear. CARDIOVASCULAR: Regular without murmur; 1+ brawny fullness, most of the right lower extremity but with less redness. No break in the skin and much less scaliness of the left lower extremity. The medial malleolus ulcer is 50 cents slightly greater in size with healng edges; center granulation tissue with a little buildup of debris toward the center. There is no induration, significant tenderness around it; there is no odor. LABS/X-RAYS: No labs since his white count of 5, hemoglobin 12 and unremarkable chemistries on admission besides his INR that was 1.77 today, 1.67 yesterday (increasing Coumadin today and he is covered with 1 mg/kg Lovenox in the meantime). His left leg wound is growing Staph Aureus - it is resistant to Cleocin. ASSESSMENT: # CELLULITIS RIGHT LOWER EXTREMITY # RIGHT LOWER EXTREMITY EDEMA - IMPROVED # RIGHT LOWER EXTREMITY PAIN - IMPROVED # CHRONIC DVT RIGHT LOWER EXTREMITY # STASIS DERMATITIS, RIGHT LOWER EXTREMITY # DIABETIC ULCER OF THE LEFT LOWER EXTREMITY; COLONIZED WITH STAPH AUREUS ( RESISTANT TO CLEOCIN) # GAIT DECLINE - ACUTE ON CHRONIC # ANTICOAGULATION - INSUFFICIENT INR COVER WITH LOVENOX THERAPEUTIC # MYASTHENIA GRAVIS PLAN: 1. We continue OT/PT, speech and supervised longterm care. 2. Continue wound care to the left ulcer; and continue for now the Cleocin and try to adjust his INR to therapeutic. 3. We may start compression stockings tomorrow on the right lower extremity and see if he can tolerate that; and maybe even an Unna boot on the left at some point. At that point we may be able to increase his activities to something that can be considered for home care once again. ARTIE
[2016-06-13] MEDS: COUMADIN PO SCH (16:52)
--- NOTE | 2016-06-13 17:03 | RS.DYSPHDC ---
Subjective Date of Discharge: 06/13/16 Date of Evaluation: 06/07/16 Duration of Therapy: five days Number of sessions: 4 Functional Reporting G Codes: swallowing Severity Impairment Rationale: Pt on mechanical soft diet texture Short Term Goals Problem: swallowing Goal #1: Pt will complete laryngeal elevation strengthening exercises with 80% acc. Goal to be met by: 06/13/16 Progress Towards Goal: Progressing Comments:: Pt with 50-60% accuracy. Requires max cues for best accuracy. Goal #2: Pt to improve respiratory support from moderate to mild difficulty. Goal to be met by: 06/13/16 Progress Towards Goal: Progressing (Increased self-awareness of breath support.) Comments:: Mild difficulty on inhalation, moderate difficulty on exhalation Goal #3: Pt will complete base of tongue strengthening exercises with 90% acc. Goal to be met by: 06/13/16 Progress Towards Goal: Partially Met Comments:: Pt met 1/5 exercises with 90% accuracy. Completed 4/5 with 60-70% acc. 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 Goal to be met by: 06/13/16 Progress towards goal: Progressing Problem: respiratory coordination Goal #2: Pt to improve respiratory support with diaphragmatic breathing techniques Progress towards goal: Progressing Problem: swallowing Goal #3: Pt to improve base of tongue strength to increase coordination with swallow Progress towards goal: Partially Met Reason for Discharge Comments: Pt discharging from [facility] tomorrow this date. RETAIL CLIENT SOLUTIONS CONSULTANT recommends continued skilled ST with home health to improve functional swallow status and respiratory support. Reason for Discharge/Current Status:: Pt to discharge to home on mechanical soft diet texture with thin liquids. At the bedside, pt demonstrates no overt s/ s of aspiration. RETAIL CLIENT SOLUTIONS CONSULTANT noted pt with dry, frequent cough and has observed coughing with and without PO intake. Pt follows instructions and exercises with mild-moderate difficulty, but increases accuracy with level of cues. Pt improved base of tongue strength with tongue hold exercise and use of diadochokinetic rate exercises. However due to current respiratory coordination and support; pt requires increased rest breaks with all exercises.
[2016-06-14] MEDS: DUONEB NEB SCH ×3 (00:15→11:09)
[2016-06-14] MEDS: CLEOCIN 600 MG in SODIUM CHLORIDE 100 ML IV SCH (05:07)
[2016-06-14 05:17] LABS: PROTHROMBIN TIME 20.1 SEC (9.3-11.0)
[2016-06-14 05:22] LABS: ANION GAP 10.9; BUN/CREATININE RATIO 16.12; CALCIUM 8.7 mg/dL (8.2-10.2); CREATININE 0.93 mg/dL (0.60-1.10); POTASSIUM 3.9 mmol/L (3.5-5.1)
[2016-06-14 05:59] VITALS: BP 115/66; TEMP 97.6
[2016-06-14] MEDS: FLONASE NAS SCH (08:03)
[2016-06-14] MEDS: FLOVENT HFA 220 MCG IH SCH (08:04)
[2016-06-14] MEDS: LEVEMIR SUBCUT SCH (08:04)
[2016-06-14] MEDS: PROSCAR PO SCH (08:05)
[2016-06-14] MEDS: FLOMAX PO SCH (08:05)
[2016-06-14] MEDS: ASPIRIN EC PO SCH (08:05)
[2016-06-14] MEDS: VITAMIN D PO SCH (08:05)
[2016-06-14] MEDS: TENORMIN PO SCH (08:05)
[2016-06-14] MEDS: [UNRECOGNIZED DRUG - OTHER] TP SCH (08:06)
[2016-06-14] MEDS: PYRIDOSTIGMINE BROMIDE 60 MG PO SCH (08:06)
[2016-06-14] MEDS: THIAMINE PO SCH (08:06)
[2016-06-14] MEDS: SILVADENE CREAM TP SCH (08:07)
--- NOTE | 2016-06-14 09:08 | PN ---
DATE OF VISIT: 06/12/16 SUBJECTIVE: Lower extremity swelling and longstanding history of DVT and stasis dermatitis. There was concern he was developing cellulitis; he was brought here for IV antibiotics and occasionally diuretics as needed. He also has a longstanding ulcer on the medial left malleolus that was being treated also by Home Health at home, which was slowly healing but we thought we might be able to accentuate the speed of that. He is a diabetic and wanted to control that problem. All the issues above have improved while he has been here. OBJECTIVE: V/S: Temperature 97.9, pulse 80, respirations 20, BP 160/70 and this has been a stable pattern. GENERAL: No obvious distress. CHEST: Clear. CARDIOVASCULAR: Regular. He still has, despite ALEXANDRO wrap, above that 1 to 2+ pitting edema to slight brawny feeling of the right lower extremity; no edema of the left and the ulcer that is still twice 50 cent size with healing edges and a little scabbing in the center. There is no induration or erythema anywhere and there is no tenderness of the right leg. LABS/X-RAYS: Today's chemistries show stable GFR at 85, actually higher than 75, no other patterns. ASSESSMENT: # CELLULITIS RIGHT LOWER EXTREMITY # RIGHT LOWER EXTREMITY EDEMA - IMPROVED # RIGHT LOWER EXTREMITY PAIN - IMPROVED # CHRONIC DVT RIGHT LOWER EXTREMITY # STASIS DERMATITIS, RIGHT LOWER EXTREMITY # DIABETIC ULCER OF THE LEFT LOWER EXTREMITY; COLONIZED WITH STAPH AUREUS ( RESISTANT TO CLEOCIN) # GAIT DECLINE - ACUTE ON CHRONIC # ANTICOAGULATION - INSUFFICIENT INR COVER WITH LOVENOX THERAPEUTIC # MYASTHENIA GRAVIS PLAN: 1. We are going to increase the ALEXANDRO wrap higher; I talked to him about when he goes home he will need to wear BROCK's or something similar to. 2. IV Lasix 40 mg tonight and then take the 20 we started yesterday on a regular basis up to 40 tomorrow; watching chemistries while we do so for tolerance. 3. We preliminarily talked about possible discharge in two days and maybe being seen by the Wound Care program here on the way out of town. ARTIE
--- NOTE | 2016-06-14 09:20 | PN ---
DATE OF VISIT: 06/11/16 SUBJECTIVE: He was placed in swing bed because the right lower extremity edema was excessive and the redness and soreness of that leg was worrisome for possible cellulitis. In addition to that he had a medial malleolus ulcer on the left leg that he has had chronically and we felt it was probably in jeopardy of not continuing to heal. His home health nurse was having great concerns and suggesting that he was beyond outpatient therapy. We brought him to the facility with IV Lasix, leg elevation brought the edema in the right leg down quickly. We continued IV Cleocin and there has been no sign of fever and the redness and soreness in his leg has gradually improved though it is not resolved. His wound on the left grew Staph resistant to Cleocin but other than potentially needing minor debridement that wound is continuing to heal. On and of he has some shortness of breath. He has myasthenia and we are having some suggestion that that is causing the pulmonary issues. His appetite is good. He is up out of the chair today with ALEXANDRO wraps of the lower extremities. OBJECTIVE: V/S: Temperature 97.5, pulse 76, BP 165/74, respirations 20 and that pattern has been steady though yesterday's blood pressure is 142/80. CHEST: Clear. CARDIOVASCULAR: S1, S2 regular with trace to 1 pitting edema above the ALEXANDRO wrap on the right lower extremity and no induration but mild tenderness of that leg. That leg still has redness. LABS/X-RAYS: INR today is now therapeutic at 2. No other labs. ASSESSMENT: # CELLULITIS RIGHT LOWER EXTREMITY # RIGHT LOWER EXTREMITY EDEMA - IMPROVED # RIGHT LOWER EXTREMITY PAIN - IMPROVED # CHRONIC DVT RIGHT LOWER EXTREMITY # STASIS DERMATITIS, RIGHT LOWER EXTREMITY # DIABETIC ULCER OF THE LEFT LOWER EXTREMITY; COLONIZED WITH STAPH AUREUS ( RESISTANT TO CLEOCIN) # GAIT DECLINE - ACUTE ON CHRONIC # ANTICOAGULATION - INSUFFICIENT INR COVER WITH LOVENOX THERAPEUTIC # MYASTHENIA GRAVIS # SHORTNESS OF BREATH ON AND OFF # ELEVATED BLOOD PRESSURE PLAN: 1. We are going to extend our ALEXANDRO wrap further and start him on lose dose diuretic monitoring his electrolytes through the process. 2. Another day or two of the Cleocin IV. 3. See what therapy can accomplish in the next day or two. 4. Discharge plan at this point - he wants to go home and it may be a couple of days. ARTIE
--- NOTE | 2016-06-14 13:13 | DS ---
SOURCE: The source of this information is prior knowledge of the patient, review of his office records as well as discussion with individuals and patient mentioned; all seemed reliable. PATIENT PROFILE: Mr. Anderson is an 81-year-old male resident of the [facility]. He was cooperative. CHIEF COMPLAINT: "His leg is getting worse." BRIEF HISTORY OF PRESENT ILLNESS: This gentleman has chronic lower extremity edema and stasis and stasis dermatitis. He has years of reoccurring and chronic DVT of the lower extremities. He has either a protein S or C deficiency discovered at an early age. He has been on anticoagulation/Coumadin for almost all of his life. He was recently hospitalized at [facility] by Dr. Keenan in my absence. He got out May 21 for an ulcer on his left leg and suspected cellulitis. He also had some redness of the right leg at the time. He required ICU transfer during that stay because he became acutely short of breath and is probably because his myasthenia gravis medicines were inadvertently held briefly. He has been seen in the office since that admission, was getting home health wound care and was actually getting some closure of the wound on his left leg. the day of admission however the home health nurse called and said his right lower leg swelling was worsening, it was staying red. There is no mention of any fever or systemic symptoms such as vomiting or nausea but at the same time we felt he was going to do very badly without increased intervention. He qualified for the swing bed on his recent acute stay; his daughter was contacted, discussed the options with the patient and he did elect to come into the swing bed for IV antibiotics, leg elevation, IV diuretics, wound care and just closer observation than what he has been able to have at home. Also if his INRs are nontherapeutic we planned to even use some Lovenox briefly. PAST HISTORY: CHILDHOOD: Normal;unremarkable. ALLERGIES/INTOLERANCE: IV LEVAQUIN (WELTS), KEFLEX (ITCHING), MYCINS, NORVASC ( HIVES), NOVACAINE (SHORTNESS OF BREATH BUT DID OKAY WITH LIDOCANE), PENICILLIN ( RASH), X-RAY DYE (SYNCOPE) CURRENT MEDICATIONS: 1. Xanax/Alprazolam 0.25 mg p.o. b.i.d. as needed 2. Aspirin 81 mg one a day 3. Tenormin 100 mg one a day 4. Vitamin D3 1000 international units once a day 5. Recent Cleocin 150 mg three times a day 6. Cyanocobalamin 1000 mcg SQ every 2 weeks 7. Proscar 5 mg once a day 8. Flovent 220 mcg/inhalation two puffs a day 9. Flonase 50 mcg/inhalation each nostril a day 10. Levemir 15 units SQ every 12 hours 11. Nitrostat 0.4 mg Sublingual p.r.n. 12. ProAir HFA 90 mcg/inhalation two puffs four times a day as needed 13. Mycelin 60 mg four times a day 14. Flomax 0.4 mg twice a day 15. Vitamin B1 100 mg once a day 16. Coumadin 3 mg a day HOSPITALIZATIONS/SURGERIES/PROCEDURES: Recent admission by Dr. Keenan and [facility] 05/23 through 08/06/03, Dr. Keenan, for kidney stone as well as cysto and stent by Dr. Ty during that stay. He had a [facility] admission 09/05 through 09/08/06 for bronchitis. A recent admission by Dr. Keenan at [facility] discharged on 05/21/16. FAMILY HISTORY: Phlebitis in daughter, son and grandson; lung cancer in father; thick blood in mother and melanoma in a brother. HABITS: A smoker, age 18, stopping at age 19. SOCIAL HISTORY: in 1954; his 11/29/06. He has three children and three stepchildren or adopted children. His primary caregiver is his son who lives very near him. REVIEW OF SYSTEMS: GENERAL: There has been no injury or fever. INTEGUMENT: The right leg has been swollen and red. There is an ulcer on the medial aspect on the left that is slowly healing. He usually has scaly lower extremities and thickened nails. HEENT: No headache, visual change. NECK: No mass or pain. CHEST: No cough or wheeze. CARDIOVASCULAR: No chest pain or palpitations. Edema is noted. GI: No dysphagia. No nausea or vomiting. No diarrhea. No melena. : He says he is voiding to completion. He did have Dr. Caldwell see him on his last [facility] admission for renal mass that was suspicious for renal cell carcinoma. MUSCULOSKELETAL/NEUROLOGIC: He chronically has weakness of the extremities. He uses a rolling walker, sometimes a wheelchair. PSYCHIATRIC: He remains alert and oriented times three despite his weakness of extremities. PHYSICAL EXAMINATION: VITALS: Height 6'2", weight 239 pounds. Pulse 72, respirations 12, BP 132/80, afebrile. GENERAL: Appropriate for age, well-kept white male in no obvious distress. INTEGUMENT: Somewhat taut right lower extremity, knee distal is slightly red. Minimal scaling particularly about the toes and feet. Left has significant scaling particularly in the toes and feet. There is a fifty cent size clean based ulcer on the medial malleolus with no odor. The toenails are thick and brittle in their entirety. Male pattern baldness. Eyegrounds are pink, nonicteric sclerae. HEENT: Facial symmetry. Pupils equal, round, extraocular movements intact. NECK: No visible lymphadenopathy, thyromegaly, mass seen or felt and supple. . CHEST: Clear. CARDIOVASCULAR: S1, S2 without murmur or carotid bruit. Distal pulses are present both feet. GI: Soft. No rebound, guarding or mass. Overweight. : Deferred. MUSCULOSKELETAL/NEUROLOGIC: Marked interosseous muscle wasting particularly noticeable of the hands. Clinical Biostatistics Director are weak. PSYCHIATRIC: Alert, oriented times three. Pleasant purposeful conversation with insight and short and detention memory through his history in conversation. ASSESSMENT/PROBLEM LIST: 0. 81-year-old white male, advanced age. 1. Allergies/intolerances - see above. 2. Procedural history - see above. 3. Family history - see above. 4. History of recurring DVT lower extremities. 5. Chronic anticoagulation - currently Coumadin approximately 1957. 6. Previous smoker - briefly. 7. Chronic leg ulcers and others. 8. Stasis dermatitis. 9. Mycotic nails. 10. Obesity. 11. Hypertension. 12. History of CVA, TIA. 13. Angina. 14. History of GERD. 15. Type 2 diabetes - June 2001. 16. Peripheral neuropathy - possible B12 involvement. 17. B12 deficiency. 18. Myasthenia. 19. Hyperlipidemia. 20. Diastolic dysfunction on 2001. 21. History of urolithiasis - 2003 (then on the left). 22. Gait difficulties from multiple reasons. 23. Prostatism. 24. 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 25. Nocturnal hypoxemia - recently found. 26. Renal cell mass - evaluation not complete and deferred by the patient. REASON FOR ADMISSION: # Right lower extremity cellulitis - possible # Left lower extremity ulcer - probably diabetic ulcer with stasis components # Right lower extremity edema that is complicating our outpatient care HOSPITAL COURSE: He spent a great deal of time in bed and we were therefore able to elevate his legs. We gave Lasix IV initially; his leg edema particularly the right leg did not really respond rapidly. He continued to have soreness and redness and he was given IV Cleocin the entire time he was here. Towards the end of this course of Cleocin we resumed his Lasix initial IV; transitioned to oral and this time the edema in his legs came out nicely. The same time his INR on admission was slightly less than therapeutic at 1.8 range; we used Lovenox as a bridge at 1mg per kg and when he hit therapeutic we went back to Coumadin. Compressive devices were used along the way; initially none and then Tian wraps gently then more intense tian wraps even further up the leg. By the time we reached discharge his legs had much less redness, soreness, scaliness; particularly the right leg even was completely non-tender. We there elected not to send home any oral antibiotics. Skin was treated with emollients; and good ol ' nursing, washing and care. His left medial malleolus ulcer was treated with Silvadene and packing; at discharge he is going to follow with [facility]. He did culture oxacillin sensitive(Cleocin resistant) Staph Aureus from that wound but was not felt to be more than a contaminant. He receive attention from Dietary and intense nutrition; he received attention from PT and OT and was walking better by the time he felt then he had for years. Labs were periodically followed and was saw no significant issues. It was noted that his diabetic shoes were dilapidated; he is being ordered to get a new set. He had an occasional cough while here it was treated with a breathing treatment; it really seems to be related to his myasthenia which seems to be worsen on and off. DISCHARGE ASSESSMENT/PROBLEM LIST (CHANGED FROM ADMISSION): # Cellulitis- right lower extremity- resolved # Right lower extremity edema- partly related to cellulitis and partly related to stasis # Right lower extremity pain-same # Chronic DVT of right lower extremity # Stasis Dermatis- right lower extremity # Tinea pedis - bilateral lower extremity # Onychomycosis- Bilateral lower extremity # Type 2 diabetes # Ulcer- left foot- may have components of diabetic and stasis - colonized with staph aureus oxacillin sensitive # Gait declined # Degenerative joint disease # Myasthenia Gravis # Anticoagulation- Coumadin # Callus and Corns- lower extremity PLAN: 1. See AVS 2. Notify Home Health of discharge in particular INR and BNP next week 3. Referral to [facility] 4. This gentleman needs diabetic shoes; he had his face to face visit today and his diagnosis are listed above. His last shoes were early 1989' and are dilapidated. PROGNOSIS: Guarded CONDITION: Stable Improving MTDD
== END 2016-06-14 12:23 | disposition home health service (06) | DRG 603 ==
LOC: MEDSURG B 17:48
PROVIDERS: ADMIT Family Medicine; ATTEND Family Medicine
DX: L03.115 Cellulitis of right lower limb (principal); I87.1 Compression of vein; I82.501 Chronic embolism and thrombosis of unspecified deep veins of right lower extremity; L97.329 Non-pressure chronic ulcer of left ankle with unspecified severity; I87.2 Venous insufficiency (chronic) (peripheral); G70.00 Myasthenia gravis without (acute) exacerbation; E11.622 Type 2 diabetes mellitus with other skin ulcer; B35.3 Tinea pedis; G89.29 Other chronic pain; M79.604 Pain in right leg; B35.1 Tinea unguium; L08.9 Local infection of the skin and subcutaneous tissue, unspecified; B95.61 Methicillin susceptible Staphylococcus aureus infection as the cause of diseases classified elsewhere; I10 Essential (primary) hypertension; R26.2 Difficulty in walking, not elsewhere classified; M19.90 Unspecified osteoarthritis, unspecified site; L84 Corns and callosities; R06.02 Shortness of breath; Z79.01 Long term (current) use of anticoagulants; Z16.11 Resistance to penicillins; Z16.39 Resistance to other specified antimicrobial drug
CPT/HCPCS: 36415; 80048; 80053; 82962; 85025; 85610; 87070; 87081; 87186; 94640; 97802; 97803

== ENCOUNTER 2016-12-20 14:44 | Outpatient (CLI) | END 2016-12-20 14:45 | disposition home or self-care (01) | LOC: OPMED 14:44 | PROVIDERS: ATTEND Family Medicine | DX: N40.0 Benign prostatic hyperplasia without lower urinary tract symptoms (principal); R33.9 Retention of urine, unspecified | CPT/HCPCS: 51798 ==

== ENCOUNTER 2019-01-01 20:00 | Inpatient (IN) ==
[2019-01-01] MEDS ORDERED: LACTATED RINGERS 1,000 ML IV STA (20:22)
--- NOTE | 2019-01-01 20:23 | ED.PDOC ---
General ED Provider: Dr. PRABHAKAR POSADA Chief Complaint: Weakness Stated Complaint: Patient is an 83 year old Male who comes to the ER brought by Family with watery diarrhea for the past week. Has a history of Myesthenia Gravies and has had Increasing weakness for the past week to the point the patient is now loosing control of his bowels. Pt is unable to transfer or move on his own. Pt has had no vomiting. Time Seen by Physician: 20:22 Mode of Arrival: Walk-In Information Source: Patient Exam Limitations: No limitations Primary Care Provider: NEVILLE HARGROVE Nursing and Triage Documentation Reviewed and Agree: Yes Does patient meet sepsis criteria?: No System Inflammatory Response Syndrome: Not Applicable Sepsis Protocol: For patient's 13 years and over: Temp is 96.8 and below OR 101 and greater Pulse >90 BPM Resp >20/minute Acutely Altered Mental Status Are patient's symptoms suggestive of a new infection, such as: -Pneumonia -Skin, Soft Tissue -Endocarditis -UTI -Bone, Joint Infection -Implantable Device -Acute Abdominal Infection -Wound Infection -Meningitis -Blood Stream Catheter Infection -Unknown Review of Systems - Review Of Systems Constitutional: Reports: Weakness (generalized ) Eyes: Reports: No symptoms Respiratory: Reports: Short of air Cardiac: Reports: Chest pain GI: Reports: Abdominal pain (left lower qudrant. ), Rectal bleeding (due to Hemorroids. ), Other (stool incontinance. ) : Reports: Incontinence Skin: Reports: Other (Pressure sore buttocks. ) Neurological: Reports: Anxiety All Other Systems: Reviewed and Negative Past Medical History - Past Medical History Endocrine: Reports: DM 2 Cardiovascular: Reports: Hypertension Respiratory: Reports: COPD Hematological: 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 ) Gastrointestinal: Reports: None Genitourinary: Reports: Unknown Neuro/Psych: Reports: None Musculoskeletal: Reports: Back Pain, Joint Pain, Other (Myesthenia Gravis ) Cancer: Reports: None - Surgical History General Surgical History: Reports: Unknown - Family History Family History: Reports: Unknown - Social History Smoking Status: Never smoker Hx Substance Use: No Alcohol Screening: None - Immunizations Tetanus Shot up to Date: No Physical Exam - Physical Exam Appearance: Ill-appearing, Obese Ill-appearing: Mild Pain Distress: Moderate Neck: Supple Respiratory: Airway patent, Breath sounds clear, Breath sounds equal, Respirations nonlabored Cardiovascular: RRR, Pulses normal, No rub, No murmur GI/: Soft, Tender (left lower quadrant ) Musculoskeletal: Normal strength, ROM intact, No edema, No calf tenderness Skin: Warm, Dry, Normal color Neurological: Alert, Oriented Psychiatric: Anxious Interpretation - Radiology Interpretation Radiology Interpretation By: Radiologist Exam Interpreted: CT Scan - Surgical Coder Rate: Normal Rhythm: Sinus - EKG Interpretation Time of EKG #1: 21:28 Rate: Normal Rhythm: Sinus [place]: Left Physician Notification - Case Discussed Physician Notified: Dr Keenan Time of Notification: 01:00 (Admit to Dr Hargrove. ) Critical Care Note - Critical Care Note Total Time (mins): 45 Course - Course Hematology/Chemistry: 01/02/19 05:10 01/02/19 05:10 Orders, Labs, Meds: Lab Review 01/01/19 01/01/19 01/01/19 20:39 20:39 20:40 WBC 11.28 H RBC 4.73 Hgb 13.7 L Hct 42.8 MCV 90.5 MCH 29.0 MCHC 32.0 RDW Coeff of Marissa 12.9 Plt Count 224 Immature Gran % (Auto) 0.9 Neut % (Auto) 77.5 Lymph % (Auto) 10.3 Grant % (Auto) 8.6 Eos % (Auto) 1.8 Baso % (Auto) 0.9 Immature Gran # (Auto) 0.1 Neut # (Auto) 8.8 H Lymph # (Auto) 1.2 Grant # (Auto) 1.0 Eos # (Auto) 0.2 Baso # (Auto) 0.1 PT 23.7 H INR 2.55 Sodium 132.7 L Potassium 4.12 Chloride 102.1 Carbon Dioxide 27.7 Anion Gap 7.02 BUN 17.9 Creatinine 0.77 Estimated GFR (MDRD) 96.00 BUN/Creatinine Ratio 23.24 Glucose 211.9 H Calcium 8.62 Total Bilirubin 0.80 AST 29.2 ALT 18.9 Alkaline Phosphatase 80.8 Total Protein 6.84 Albumin 3.66 Globulin 3.18 Albumin/Globulin Ratio 1.15 Amylase 50.5 Lipase 78.8 Urine Color Urine Clarity Urine pH Ur Specific [place] Urine Protein Urine Glucose (UA) Urine Ketones Urine Blood Urine Nitrite Urine Bilirubin Urine Urobilinogen Ur Leukocyte Esterase Urine Microscopic RBC Urine Microscopic WBC Ur Squamous Epith Cells Urine Mucus Stl Occult Blood (IFOB) Stool Occult Blood #2 Stool Occult Blood #3 01/01/19 01/01/19 23:05 23:05 WBC RBC Hgb Hct MCV MCH MCHC RDW Coeff of Marissa Plt Count Immature Gran % (Auto) Neut % (Auto) Lymph % (Auto) Grant % (Auto) Eos % (Auto) Baso % (Auto) Immature Gran # (Auto) Neut # (Auto) Lymph # (Auto) Grant # (Auto) Eos # (Auto) Baso # (Auto) PT INR Sodium Potassium Chloride Carbon Dioxide Anion Gap BUN Creatinine Estimated GFR (MDRD) BUN/Creatinine Ratio Glucose Calcium Total Bilirubin AST ALT Alkaline Phosphatase Total Protein Albumin Globulin Albumin/Globulin Ratio Amylase Lipase Urine Color Yellow Urine Clarity Clear Urine pH 5.5 Ur Specific [place] 1.015 Urine Protein Negative Urine Glucose (UA) 2+ Urine Ketones 1+ Urine Blood 1+ Urine Nitrite Negative Urine Bilirubin Negative Urine Urobilinogen 0.2 Ur Leukocyte Esterase Trace Urine Microscopic RBC 5-10 Urine Microscopic WBC 10-20 Ur Squamous Epith Cells 0-2 Urine Mucus Trace Stl Occult Blood (IFOB) Positive Stool Occult Blood #2 Positive Stool Occult Blood #3 Pending Orders Category Date Time Status EKG-(ED ONLY) Stat CARDIO 01/01/19 20:52 Completed ED IV/MEDIPORT/POWERPORT .ONCE EMERGENCY 01/01/19 20:22 Active AMYLASE Stat LAB 01/01/19 20:39 Completed CBC W/ AUTO DIFF Stat LAB 01/01/19 20:39 Completed COMPREHENSIVE METABOLIC PANEL Stat LAB 01/01/19 20:39 Completed LIPASE Stat LAB 01/01/19 20:39 Completed PT WITH INR Stat LAB 01/01/19 20:40 Completed URINALYSIS C & S IF INDICATED Stat LAB 01/01/19 23:05 Completed 0.9 % Sodium Chloride [Saline Flush] MEDS 01/01/19 20:22 Active 1 syr IVF PRN PRN Ringers Lactated Solution [Lactated Ringers] 1,000 ml MEDS 01/01/19 20:[address] ABD/PEL WO RENAL STONE PROT Stat RADS 01/01/19 20:[address] CHEST W/O CONTRAST Stat RADS 01/01/19 20:[address] HEAD W/O CONTRAST Stat RADS 01/01/19 20:32 Completed Medications Generic Name Dose Route Start Last Admin Trade Name Freq PRN Reason Stop Dose Admin Acetaminophen 650 mg 01/02/19 16:27 Tylenol PO Q4H PRN mild to moderate pain Albuterol Sulfate 2 puff 01/02/19 09:00 01/02/19 20:38 Proair Hfa IH 2 puff BID BENITO Administration Alprazolam 0.25 mg 01/02/19 09:00 01/02/19 20:37 Xanax PO 0.25 mg BID BENITO Administration Aspirin 81 mg 01/02/19 09:00 01/02/19 08:36 Aspirin Ec PO 81 mg DAILY BENITO Administration Atenolol 100 mg 01/02/19 09:00 01/02/19 09:17 Tenormin PO 100 mg DAILY BENITO Administration Calamine/Phenol 1 applic 01/02/19 13:00 01/02/19 20:38 Calmoseptine Ointment TP 1 applic QID BENITO Administration Cholecalciferol 1,000 unit 01/02/19 09:00 01/02/19 08:36 Vitamin D PO 1,000 unit DAILY BENITO Administration Finasteride 5 mg 01/02/19 09:00 01/02/19 08:35 Proscar PO 5 mg DAILY BENITO Administration Fluticasone Propionate 2 puff 01/02/19 09:00 01/02/19 20:38 Flovent Hfa 220 Mcg IH 2 puff BID BENITO Administration Furosemide 20 mg 01/02/19 17:00 01/02/19 17:10 Lasix Tab PO 20 mg BIDAC BENITO Administration Potassium Chloride/Sodium Chloride 1,000 mls @ 75 mls/hr 01/02/19 10:00 01/02 11:03 Sodium Chloride 0.9%-Kcl 20 Meq IV 75 mls/hr .[id number] BENITO Administration Insulin Human Lispro 2 - 7 unit 01/02/19 07:44 01/02/19 17:19 Humalog SUBCUT 3 unit PRN PRN Administration HYPERGLYCEMIA/SLIDING SCALE Protocol Metronidazole 500 mg 01/02/19 05:00 01/02/19 20:37 Flagyl PO 01/05/19 04:59 500 mg Q8HR BENITO Administration Nitroglycerin 0.4 mg 01/02/19 01:21 Nitrostat SL Q5MIN X 3 DOSES PRN Chest Pain Pyridostigmine 60 Mg 60 mg 01/02/19 08:00 01/02/19 17:09 Tablet PO 60 mg TIDWM BENITO Administration Pyridostigmine 60 Mg 1 tab 01/02/19 21:00 01/02/19 20:37 Tablet PO 1 tab BEDTIME BENITO Administration Potassium Chloride 20 meq 01/02/19 09:00 01/02/19 08:36 K-Dur PO 20 meq DAILY BENITO Administration Sodium Chloride 1 syr 01/01/19 20:22 01/02/19 11:06 Saline Flush IVF 1 syr PRN PRN Administration To flush IV Tamsulosin HCl 0.4 mg 01/02/19 09:00 01/02/19 20:37 Flomax PO 0.4 mg BID BENITO Administration Thiamine HCl 100 mg 01/02/19 09:00 01/02/19 08:36 Thiamine PO 100 mg DAILY BENITO Administration Warfarin Sodium 4 mg 01/02/19 17:00 01/02/19 17:12 Coumadin PO 4 mg Q72H BENITO Administration Warfarin Sodium 3 mg 01/03/19 17:00 Coumadin PO Q72H BENITO Warfarin Sodium 3 mg 01/04/19 17:00 Coumadin PO Q72H BENITO Discontinued Medications Generic Name Dose Route Start Last Admin Trade Name Freq PRN Reason Stop Dose Admin Acetaminophen 650 mg 01/02/19 02:09 01/02/19 02:44 Tylenol PO 01/02/19 02:10 650 mg ONCE STA Administration Acetaminophen 650 mg 01/02/19 11:17 01/02/19 12:14 Tylenol PO 01/02/19 11:18 650 mg ONCE STA Administration Albuterol Sulfate 2 puff 01/02/19 02:07 01/02/19 02:45 Proair Hfa IH 01/02/19 02:08 2 puff ONCE STA Administration Fluticasone Propionate 2 puff 01/02/19 02:08 01/02/19 02:45 Flovent Hfa 220 Mcg IH 01/02/19 02:09 2 puff ONCE STA Administration Furosemide 20 mg 01/02/19 09:00 01/02/19 08:37 Lasix Tab PO 20 mg BID BENITO Administration Lactated Ringer's 1,000 mls @ 1,000 mls/hr 01/01/19 20:22 01/01/19 21:12 Lactated Ringers IV 01/01/19 21:21 1,000 mls/hr BOLUS STA Administration Non-Formulary Medication 50 mcg 01/02/19 09:00 Fluticasone Propionate [Flovent Diskus] IH BID BENITO Non-Formulary Medication 1 tab 01/02/19 01:30 01/02/19 01:38 Pyridostigmine Voca [Pyridostigmine Voca] PO 1 tab BEDTIME BENITO Administration Vital Signs: Temp Pulse Resp BP Pulse Ox 01/01/19 20:04 100.0 F H 78 20 206/85 H 94 L Departure - Departure Time of Disposition: :40 Disposition: ADMITTED INPATIENT Discharge Problem: Weakness Diarrhea Qualifiers: Diarrhea type: unspecified type Qualified Code(s): R19.7 - Diarrhea, unspecified Condition: Poor Pt referred to PMD for follow-up: Yes IPMP verified?: No Allergies/Adverse Reactions: Allergies cephalexin [From Keflex] Adverse Reaction (Verified 05/21/16 07:36) Itching erythromycin base Adverse Reaction (Verified 05/21/16 07:36) Iodinated Contrast Media [Iodinated Contrast Media - Oral and] Adverse Reaction (Verified 05/21/16 07:36) Unconsciousness levofloxacin [From Levaquin] Adverse Reaction (Verified 05/21/16 07:36) Hives Penicillins Adverse Reaction (Verified 05/21/16 07:36) Rash povidone-iodine [From Betadine] Adverse Reaction (Verified 05/21/16 07:36) procaine [From Novocain] Adverse Reaction (Verified 05/21/16 07:36) soap [From Betadine] Adverse Reaction (Verified 05/21/16 07:36) Sulfa (Sulfonamide Antibiotics) Adverse Reaction (Verified 05/21/16 07:36) Home Medications: Ambulatory Orders Albuterol Sulfate [Proair Hfa] 2 puff IH BID 05/21/16 Alprazolam [Xanax] 0.25 mg PO BID 05/21/16 Aspirin [Ecotrin] 81 mg PO DAILY 05/21/16 Atenolol 100 mg PO DAILY 05/21/16 Finasteride 5 mg PO DAILY 05/21/16 Fluticasone Propionate 220 Mcg [Flovent Hfa 220 Mcg] 2 puff INH BID 05/21/16 Fluticasone Propionate [Flovent Diskus] 50 mcg IH BID 05/21/16 Pyridostigmine Voca 60 mg PO TIDWM 05/21/16 Tamsulosin HCl [Flomax] 1 cap PO BID 05/21/16 Thiamine HCl [B-1] 100 mg PO DAILY 05/21/16 Cholecalciferol (Vitamin D3) [Vitamin D] 1,000 unit PO DAILY 06/06/16 Warfarin Sodium [Coumadin] 3 mg PO DIRECTED 06/06/16 Potassium Chloride [K-Dur] 20 meq PO DAILY #30 tab 06/14/16 Insulin Lispro [Humalog Kwikpen] 1 unit SQ DIRECTED 01/01/19 Furosemide [Lasix] 20 mg PO BID 01/02/19 Nitroglycerin [Nitrostat] 0.4 mg SL Q5MIN X 3 DOSES PRN 01/02/19 Pyridostigmine Voca 1 tab PO BEDTIME 01/02/19
--- NOTE | 2019-01-01 21:29 | CT ---
EXAM: CT of the head without contrast History: Headache. Comparison: Head CT 05/21/2016 Technique: Multiplanar CT images through the head were obtained without the administration of IV con trast Findings: The visualized paranasal sinuses and mastoid air cells are clear in general. No acute josemanuel varial abnormalities. Intracranially there are atherosclerotic vascular calcifications. There is stable diffuse cerebral a trophy. No midline shift and no hydrocephalus. No acute intracranial hemorrhage or abnormal extraax ial fluid collections. No dominant masses. Impression: No acute intracranial process. Stable atrophy.
--- NOTE | 2019-01-01 21:46 | CT ---
EXAM: CT of the chest, abdomen and pelvis without contrast History: Headache, weakness, chest pain and abdominal pain. Comparison: CT abdomen pelvis 05/21/2016 Technique: Multiplanar CT images through the chest, abdomen pelvis were obtained without the adminis tration of IV contrast Findings: Heart size is upper limits of normal. No pericardial effusion. No thoracic aortic aneury sm. No pathologically enlarged thoracic lymph nodes. Atherosclerotic vascular calcifications. No c onsolidation. No pleural fluid and no pneumothorax. 5 mm nodule within the right upper lobe. The liver is fatty. Status post cholecystectomy. Atherosclerotic vascular calcifications of the abd ominal aorta and its branches. No peripancreatic inflammation. Adrenal glands are unremarkable. No significant interval change in the bilateral renal cortical masses most of which appear to represent cysts with some lesions could be solid. No change in the 2.1 cm cyst lateral to the right kidney. Enlarged prostate abutting the base of the bladder. No bladder wall thickening. No change in the li alvaro within the wall of the sigmoid colon. No bowel obstruction. Colonic diverticulosis. There is wall thickening of the rectum and presacral edema. 1.1 cm left perirectal lymph node has increased i n size compared to the prior study. No acute osseous abnormalities Impression: 1. No acute intrathoracic process. 2. 5 mm nodule within the right upper lobe. Recommend follow-up chest CT in 6 months. 3. Rectal wall thickening with adjacent inflammation and enlarging left perirectal lymph node could be malignant. Recommend direct visualization. 4. Enlarged prostate abutting the base of bladder. 5. No change in the lipoma involving the wall of the sigmoid colon. 6. No significant interval change in the bilateral renal cortical masses which are not well evaluate d without IV contrast. 7. Hepatic steatosis
[2019-01-02 01:03] VITALS: BMI 26.7
[2019-01-02] MEDS ORDERED: NITROSTAT SL PRN (01:21)
[2019-01-02] MEDS ORDERED: COUMADIN PO SCH (01:30)
[2019-01-02] MEDS ORDERED: INSULIN LISPRO 1 UNIT SQ SCH (01:30)
[2019-01-02] MEDS ORDERED: PYRIDOSTIGMINE BROMIDE PO SCH (01:30)
[2019-01-02] MEDS ORDERED: PROAIR HFA IH STA (02:07)
[2019-01-02] MEDS ORDERED: FLOVENT HFA 220 MCG IH STA (02:08)
[2019-01-02] MEDS ORDERED: TYLENOL PO STA ×2 (02:09→11:17)
[2019-01-02] MEDS: FLAGYL PO SCH ×3 (05:09→20:37)
[2019-01-02] MEDS: PYRIDOSTIGMINE BROMIDE 60 MG PO SCH ×3 (08:34→17:09)
[2019-01-02] MEDS: PROSCAR PO SCH (08:35)
[2019-01-02] MEDS: XANAX PO SCH ×2 (08:35→20:37)
[2019-01-02] MEDS: ASPIRIN EC PO SCH (08:36)
[2019-01-02] MEDS: K-DUR PO SCH (08:36)
[2019-01-02] MEDS: VITAMIN D PO SCH (08:36)
[2019-01-02] MEDS: FLOMAX PO SCH ×2 (08:36→20:37)
[2019-01-02] MEDS: THIAMINE PO SCH (08:36)
[2019-01-02] MEDS: FLOVENT HFA 220 MCG IH SCH ×2 (08:48→20:38)
[2019-01-02] MEDS: PROAIR HFA IH SCH ×2 (08:55→20:38)
[2019-01-02] MEDS ORDERED: LASIX TAB PO SCH (09:00)
[2019-01-02] MEDS ORDERED: FLUTICASONE PROPIONATE 50 MCG IH SCH (09:00)
[2019-01-02] MEDS ORDERED: NON-FORMULARY MEDICATION (Atenolol [Atenolol] 100 MG) PO SCH (09:00)
[2019-01-02] MEDS: TENORMIN PO SCH (09:17)
[2019-01-02] MEDS: SODIUM CHLORIDE 0.9%-KCL 20 MEQ 1,000 ML IV SCH (11:03)
[2019-01-02] MEDS: CALMOSEPTINE OINTMENT TP SCH ×3 (12:15→20:38)
--- NOTE | 2019-01-02 15:06 | RS.PTINEVL ---
Subjective - Patient information Date of Evaluation: 01/02/19 Date of Arrival on Unit: 01/01/19 Admitted From:: Home Diagnosis: diarrhea, weakness, pressure ulcers, Usual Living Arrangement: Alone Living Arrangement Comments: pt states he gets "to and from" but does not walk any distance at home. Has a power w/c. Home Environment: House, Ramp Medical History: Hypertension, COPD, Diabetes, Arthritis Medical History Comments:: depression/anxiety, enlarged prostate, clotting disorder, myasthenia gravis Medications: see chart Subjective Information/ Patient Comments:: pt states he is planning to go to the prison. States he now has no control over his bowels or bladder. - Level of function Prior to this admission, the patient could do the following:: Partially Dependent Ambulation Current Level of Function: Dependent Current Equipment Used at Home: power wheelchair, oxygen Pain Assessement - Location escoriated area on buttocks Description: Burning Pain Behavior: Moaning, Facial Grimacing Effects of Pain: pt c/o pain in sitting and with nursing executive performing hygeine Interventions - Objective Patient Orientation: Person, Place, Situation Current Interventions: IV's, Oxygen, Telemetry Observation: wound to buttock Range of Motion - ROM Right Upper Extremity AROM: Slight limitation (PROM WFL's, AROM limited) Left Upper Extremity AROM: Slight limitation Right Lower Extremity AROM: Moderate limitation (limitation to B ankles, decreased hip ext) Left Lower Extremity AROM: Moderate limitation (limitation to B ankles, decreased hip ext) Muscle Strength - Muscle Strength Right Upper Extremity Strength: Severe Weakness (shld flex 2-/5, elbow flex/ext 3+/5,) Left Upper Extremity Strength: Severe Weakness (shld flex 2-/5, elbow flex/ext 3 +/5,) Right Lower Extremity Strength: Severe Weakness (hip flex 4-/5, knee flex/ext 4- /5) Left Lower Extremity Strength: Severe Weakness (hip flex 4-/5, knee flex/ext 4-/ 5) Sensation - Sensation Right Upper Extremity Sensation: Intact/Normal Left Upper Extremity Sensation: Intact/Normal Right Lower Extremity Sensation: Intact/Normal Left Lower Extremity Sensation: Intact/Normal Balance - Sitting Balance and Reactions Static Sitting Balance: Fair Dynamic Sitting Balance: Poor - Standing Balance and Reactions Static Standing Balance: Poor Dynamic Standing Balance: Poor Standing Equilibrium Reactions: Delayed Left, Delayed Right Standing Protective Reactions: Delayed Left, Delayed Right Functional Mobility - Bed Mobility Rolling R/L: Mod Assist, 2 person assist Scooting: Max Assist, 2 person assist Supine to Sit: Mod Assist, 2 person assist Sit to Supine: Mod Assist, 2 person assist - Transfers Sit to Stand: Mod Assist, 2 person assist Stand to Sit: Mod Assist, 2 person assist Stand Pivot Transfers: Mod Assist, 2 person assist (pt stood ) Comments:: pt stood and took 2 steps from bed to/from BSC with mod x 2 - Safety Awareness Safety Awareness: Poor ESTHER INDEX SCORE: n/a Treatment time - Time with patient Length of Evaluation: 21 Total treatment time: 21 Patient Education - Education Patient Education: Activity Modification, Education of Plan of Care Teaching Recipient: Patient Teaching Methods: Discussion Comments: discussion regarding POC Assessment - Assessment Problem List:: Decreased level of function, Requires training/education, Decreased safety/Risk of falls, Weakness, Pain limits previous level of function , Cognitive status limits abilities Rehab Potential: Fair Further Therapy Indicated?: Yes Candidate for Swing Bed for Therapy Services?: Feel pt may not be a candidate for swing bed, pt may benefit from termite inspector rehab. Evaluation Complexity: HISTORY: Medium, EXAM OF BODY SYSTEMS: Medium, CLINICAL PRESENTATION: Medium, CLINICAL DECISION MAKING: Medium Short Term Goals GOAL #1: pt demonstrate rolling and bridging with min x 1 Goal to be met by: 01/06/19 GOAL #2: pt transfer sup to/from sit mod x 1 Goal to be met by: 01/06/19 GOAL #3: sit to/from stand mod x 1 Goal to be met by: 01/06/19 GOAL #4: pt amb 3-4 steps to/from chair with rwx with mod x 1 Goal to be met by: 01/06/19 GOAL #5: pt sit at side of bed x 3 mins unsupported reaching away from midline Goal to be met by: 01/06/19 Senior Energy Market Coordinator Goals GOAL #1: Sup to/from sit to/from stand min x 1 Goal to be met by: 01/08/19 GOAL #2: pt amb 5-10 ft with rwx with min to mod x 1 Goal to be met by: 01/08/19 GOAL #3: pt demonstrate rolling with bed rails with verbal cues Goal to be met by: 01/08/19 Plan Plan of Care: Therapeutic EX, Therapeutic Activity Other:: gait training Frequency of Treatment: 1-2 X day, as tolerated Duration of Treatment: 1 Week Anticipated Discharge Destination: Home Treatment Diagnosis (ICD 10 Codes): R 26.81 balance impaired. M62.81 weakness. R 26.2 difficulty walking Has the Physician been added for Co-signature?: Yes
[2019-01-02] MEDS: LASIX TAB PO SCH (17:10)
[2019-01-02] MEDS: COUMADIN PO SCH (17:12)
[2019-01-02] MEDS: HUMALOG SUBCUT PRN ×2 (17:19→22:48)
[2019-01-02] MEDS: PYRIDOSTIGMINE BROMIDE PO SCH (20:37)
[2019-01-03] MEDS: SODIUM CHLORIDE 0.9%-KCL 20 MEQ 1,000 ML IV SCH ×3 (01:35→17:06)
[2019-01-03] MEDS ORDERED: OCEAN NASAL SPRAY NAS SCH (05:00)
[2019-01-03] MEDS: LASIX TAB PO SCH ×2 (05:49→17:05)
[2019-01-03] MEDS: FLAGYL PO SCH ×3 (05:50→20:54)
[2019-01-03] MEDS: OCEAN NASAL SPRAY NAS PRN (05:51)
[2019-01-03] MEDS: HUMALOG SUBCUT PRN ×4 (06:03→21:00)
[2019-01-03] MEDS: TYLENOL PO PRN ×4 (06:03→23:50)
[2019-01-03] MEDS: TENORMIN PO SCH (08:22)
[2019-01-03] MEDS: THIAMINE PO SCH (08:23)
[2019-01-03] MEDS: K-DUR PO SCH (08:23)
[2019-01-03] MEDS: XANAX PO SCH ×2 (08:23→20:54)
[2019-01-03] MEDS: VITAMIN D PO SCH (08:23)
[2019-01-03] MEDS: ASPIRIN EC PO SCH (08:23)
[2019-01-03] MEDS: PYRIDOSTIGMINE BROMIDE 60 MG PO SCH ×3 (08:24→16:58)
[2019-01-03] MEDS: PROSCAR PO SCH (08:24)
[2019-01-03] MEDS: FLOMAX PO SCH ×2 (08:24→20:54)
[2019-01-03] MEDS: FLOVENT HFA 220 MCG IH SCH ×2 (08:25→20:53)
[2019-01-03] MEDS: CALMOSEPTINE OINTMENT TP SCH ×4 (08:25→20:54)
[2019-01-03] MEDS: PROAIR HFA IH SCH ×2 (08:25→20:53)
--- NOTE | 2019-01-03 13:37 | RS.OTINEVL ---
Subjective - Patient information Date of Evaluation: 01/03/19 Date of Arrival on Unit: 01/01/19 Admitted From:: Home Diagnosis: CHF, SOA, PRECAUTIONS: At risk for falls Usual Living Arrangement: Alone Living Arrangement Comments: pt states he gets "to and from" but does not walk any distance at home. Has a power w/c. Home Environment: House, Ramp Medical History: Hypertension, COPD, Diabetes, Arthritis Medical History Comments:: depression/anxiety, enlarged prostate, clotting disorder, myasthenia gravis Medications: see chart Subjective Information/ Patient Comments:: "I am able to feed myself but my daughter helps me." - Level of function Prior to this admission, the patient could do the following:: Partially Dependent Ambulation Abilities prior to this admission: Pt was living alone and would transfer from electric WC to bed or toilet. Pt was able to take care of himself before his illness and now he requires assistance. Current Level of Function: Partially Dependent Current Equipment Used at Home: power wheelchair, oxygen Pain Assessment - Pain Pain Score: 0 Interventions - Objective Patient Orientation: Person, Place, Time, Situation Current Interventions: IV's, Telemetry Observation: Pt has a difficult time with fine motor tasks. Pt has difficulty with pinch public message service supervisor, and holding utensils in his hand. Pt has difficult time donning his shoes and braces. Interventions - ROM Right Upper Extremity AROM: Moderate limitation Left Upper Extremity AROM: Moderate limitation - Strength Right Upper Extremity Strength: Mild Weakness Left Upper Extremity Strength: Mild Weakness - Sensation Right Upper Extremity Sensation: Intact/Normal Left Upper Extremity Sensation: Intact/Normal Balance - Sitting Balance Static Sitting Balance: Good Dynamic Sitting Balance: Good - Standing Balance Static Standing Balance: Fair Dynamic Standing Balance: Fair ADL Skills - Self Feeding Self Feeding: CGA, Min Assist - Bathing Bathing UE: Not Tested Bathing LE: Not Tested - Dressing Dressing UE: Min Assist Dressing LE: Min Assist - Toilet Management Toileting Management: Min Assist Functional Mobility - Bed Mobility Rolling R/L: Min Assist Scooting: CGA Supine to Sit: CGA Sit to Supine: CGA - Transfers Stand Pivot Transfers: Min Assist, 2 person assist (Pt has an IV and requires min Assistance with transfers.) ESTHER INDEX SCORE: . Additional Treatment Performed - Additional units charged ADL: 15 - Time with patient Length of Evaluation: 28 Total treatment time: 43 Activities Would you enjoy group activities?: Yes Do you have difficulty with your vision?: Yes Patient Interests:: Watching Television, Visiting/Socializing Patient Education Patient Education: Education of diagnosis, Home Exercise Program, Activity Modification, Education of Plan of Care Teaching Recipient: Patient Teaching Methods: Discussion Assessment Problem List:: Decreased level of function, Requires training/education, Decreased safety/Risk of falls, Weakness, Pain limits previous level of function Rehab Potential: Good Further Therapy Indicated?: Yes Evaluation Complexity: HISTORY: Medium, EXAM OF BODY SYSTEMS: Medium, CLINICAL DECISION MAKING: Medium Short Term Goals - Goals GOAL 1: Pt to increase bed mobility to independent Goal to be met by: 01/10/19 Comments: MA with RW GOAL 2: Pt to increase RUE strength to 4-/5 in order to increase I of transfers. Goal to be met by: 01/10/19 GOAL 3: Pt to be CGA with self feeding with modified adaptive equiment. Goal to be met by: 01/10/19 Long-Term Goals GOAL 1: Pt to increase functional mobility for ADLS transfers to Modified Ind. Goal to be met by: 01/16/19 GOAL 2: Pt to increase BUE strength to 4+/5. Goal to be met by: 01/16/19 GOAL 3: Pt to be Mod-I with self feeding with modified adaptive equiment. Goal to be met by: 01/16/19 Plan Plan of Care: Therapeutic EX, Neuromuscular Re-Educ, Therapeutic Activity, Self- Care/Home Management Frequency of Treatment: 1-2 X day, as tolerated Duration of Treatment: 1 Week Anticipated Discharge Destination: [facility] Treatment Diagnosis (ICD 10 Codes): Generalized weakness M62.81, Z74.1 Need for assistance with personal care. Has the Physician been added for Co-signature?: Yes
[2019-01-03] MEDS ORDERED: COUMADIN PO SCH (17:00)
[2019-01-03] MEDS: PYRIDOSTIGMINE BROMIDE PO SCH (20:53)
[2019-01-04] MEDS: TYLENOL PO PRN ×2 (05:59→20:30)
[2019-01-04] MEDS: FLAGYL PO SCH ×3 (05:59→20:31)
[2019-01-04] MEDS: LASIX TAB PO SCH ×2 (05:59→17:20)
[2019-01-04] MEDS: HUMALOG SUBCUT PRN ×4 (06:00→20:36)
[2019-01-04] MEDS: SODIUM CHLORIDE 0.9%-KCL 20 MEQ 1,000 ML IV SCH (06:06)
[2019-01-04] MEDS: PYRIDOSTIGMINE BROMIDE 60 MG PO SCH ×3 (08:38→17:27)
[2019-01-04] MEDS: CALMOSEPTINE OINTMENT TP SCH ×4 (08:38→20:32)
[2019-01-04] MEDS: FLOVENT HFA 220 MCG IH SCH ×2 (08:38→20:31)
[2019-01-04] MEDS: PROSCAR PO SCH (08:39)
[2019-01-04] MEDS: XANAX PO SCH ×2 (08:39→20:31)
[2019-01-04] MEDS: ASPIRIN EC PO SCH (08:39)
[2019-01-04] MEDS: FLOMAX PO SCH ×2 (08:39→20:31)
[2019-01-04] MEDS: K-DUR PO SCH (08:39)
[2019-01-04] MEDS: VITAMIN D PO SCH (08:39)
[2019-01-04] MEDS: THIAMINE PO SCH (08:40)
[2019-01-04] MEDS: PROAIR HFA IH SCH ×2 (08:40→20:31)
[2019-01-04] MEDS: TENORMIN PO SCH (08:40)
[2019-01-04] MEDS ORDERED: COUMADIN PO SCH (17:00)
[2019-01-04] MEDS: PYRIDOSTIGMINE BROMIDE PO SCH (20:33)
[2019-01-05] MEDS: TYLENOL PO PRN ×2 (01:09→19:32)
[2019-01-05] MEDS: LASIX TAB PO SCH ×2 (05:57→17:10)
[2019-01-05] MEDS: PROAIR HFA IH SCH ×2 (08:27→20:25)
[2019-01-05] MEDS: OCEAN NASAL SPRAY NAS PRN (08:27)
[2019-01-05] MEDS: FLOVENT HFA 220 MCG IH SCH ×2 (08:27→20:25)
[2019-01-05] MEDS: PYRIDOSTIGMINE BROMIDE 60 MG PO SCH ×3 (08:28→17:10)
[2019-01-05] MEDS: THIAMINE PO SCH (08:29)
[2019-01-05] MEDS: VITAMIN D PO SCH (08:29)
[2019-01-05] MEDS: TENORMIN PO SCH (08:29)
[2019-01-05] MEDS: PROSCAR PO SCH (08:29)
[2019-01-05] MEDS: ASPIRIN EC PO SCH (08:30)
[2019-01-05] MEDS: K-DUR PO SCH (08:30)
[2019-01-05] MEDS: XANAX PO SCH ×2 (08:30→20:24)
[2019-01-05] MEDS: FLOMAX PO SCH ×2 (08:30→20:25)
[2019-01-05] MEDS: CALMOSEPTINE OINTMENT TP SCH ×4 (08:30→20:29)
[2019-01-05] MEDS: HUMALOG SUBCUT PRN ×4 (08:49→20:26)
[2019-01-05] MEDS ORDERED: LIDOCAINE HCL 2% LUER-JET IVP PRN (11:38)
[2019-01-05] MEDS: URO-JET MUCOUSMEMB PRN ×3 (12:05→19:32)
[2019-01-05] MEDS: COUMADIN PO SCH (17:10)
[2019-01-05] MEDS: SODIUM CHLORIDE 0.9%-KCL 20 MEQ 1,000 ML IV SCH (18:04)
[2019-01-05] MEDS: PYRIDOSTIGMINE BROMIDE PO SCH (20:24)
[2019-01-06] MEDS: LASIX TAB PO SCH (05:37)
[2019-01-06 05:38] VITALS: BP 158/80; TEMP 97.5
[2019-01-06] MEDS: HUMALOG SUBCUT PRN ×2 (06:11→12:40)
[2019-01-06] MEDS: PYRIDOSTIGMINE BROMIDE 60 MG PO SCH ×2 (09:03→12:25)
[2019-01-06] MEDS: OCEAN NASAL SPRAY NAS PRN (09:03)
[2019-01-06] MEDS: TENORMIN PO SCH (09:03)
[2019-01-06] MEDS: FLOMAX PO SCH (09:04)
[2019-01-06] MEDS: XANAX PO SCH (09:04)
[2019-01-06] MEDS: PROSCAR PO SCH (09:04)
[2019-01-06] MEDS: THIAMINE PO SCH (09:05)
[2019-01-06] MEDS: VITAMIN D PO SCH (09:05)
[2019-01-06] MEDS: FLOVENT HFA 220 MCG IH SCH (09:06)
[2019-01-06] MEDS: K-DUR PO SCH (09:06)
[2019-01-06] MEDS: ASPIRIN EC PO SCH (09:06)
[2019-01-06] MEDS: CALMOSEPTINE OINTMENT TP SCH (09:06)
[2019-01-06] MEDS: PROAIR HFA IH SCH (09:06)
[2019-01-06] MEDS: TYLENOL PO PRN (10:23)
--- NOTE | 2019-03-14 08:57 | PN ---
DATE OF VISIT: 01/05/19 SUBJECTIVE: Mr. Anderson continues to improve. His stools are more formed and without blood. Denies any abdominal pain. He is looking forward to going to rehab tomorrow. PHYSICAL EXAMINATION: Vital signs: Temperature 98.6, pulse 84, respiratory rate 18, blood pressure 130/88. HEENT: Pupils are equal, round. NECK: Supple. CHEST: Clear. CARDIOVASCULAR: Regular rate and rhythm. ABDOMEN: Soft, nontender. EXTREMITIES: No edema. Protime is 26, INR 2.83. IMPRESSION: 1. Diarrhea. 2. Weakness. PLAN: 1. Stool cultures so far negative. 2. Rehab tomorrow. [facility] SYSTEMGiancarlo
--- NOTE | 2019-03-14 10:44 | PN ---
DATE OF VISIT: 01/04/19 SUBJECTIVE: Mr. Anderson still continues to have diarrhea but denies any blood. Denies any abdominal pain. PHYSICAL EXAMINATION: V/S: Temperature 98.9, pulse 80, respirations 18, BP 140/90. HEENT: Normal. NECK: Supple. CHEST: Clear. CARDIOVASCULAR: Regular rate and rhythm. ABDOMEN: Soft and nontender. EXTREMITIES: Without edema. ASSESSMENT: 1. Diarrhea, weakness. PLAN: 1. Awaiting stool cultures. 2. INR as noted. 3. Will continue Flagyl, await stool culture results. MTDD
--- NOTE | 2019-03-14 10:52 | PN ---
DATE OF VISIT: 01/03/19 SUBJECTIVE: Mr. Anderson continues to do well. He continued his IV fluids for his diarrhea which is persistent although no blood. Denies any abdominal pain or vomiting. PHYSICAL EXAMINATION: V/S: Temperature 99.9, pulse 85, respirations 16, blood pressure 130/80. HEENT: Pupils equal, round and reactive. CHEST: Clear. CARDIOVASCULAR: Regular rate and rhythm. ABDOMEN: Soft, nontender. EXTREMITIES: No edema. PLAN: 1. We await the stool culture. 2. Continue the Flagyl. 3. Will monitor stool results. 4. Please see orders. MTDD
--- NOTE | 2019-03-14 10:59 | DS ---
PRINCIPAL DIAGNOSIS: 1. MYASTHENIA GRAVIS 2. URINARY RETENTION 3. ANXIETY 4. HYPERTENSION 5. DIARRHEA 6. WEAKNESS 7. DIABETES TYPE 2, INSULIN TREATED DISPOSITION: Transfer to Rehab. DISCUSSION: This is an 83-year-old gentleman who presented with a history of myasthenia gravis on Coumadin who presented to the Emergency Department with watery diarrhea and weakness. He isn't able to transfer or move on his own. In this context, the patient was admitted to Dr. Hargrove's services for IV fluid support and investigation of his stools. Mr. Anderson told Dr. Hargrove that he didn't want to have any consideration for resuscitation or colonoscopy. In this context, the patient was admitted to Dr. Hargrove's services, IV fluid support. Stool studies were ordered. C. Diff was noted to be negative. Stool cultures were ordered and at this point are still pending. He did well during the hospitalization. He did have bloody stools however stools at the time of discharge were more formed and without blood. He did continue to have issues with urinary retention and therefore he did require catheterization intermittently for his urinary retention. At this point the patient is being discharged with current medication list and consideration [facility]. He will require a protime in two days as well as weekly for the next four weeks. ARTIE
== END 2019-01-06 12:55 | DRG 379 ==
LOC: ED 20:00 → MEDSURG B 23:42
PROVIDERS: ADMIT Family Medicine; ATTEND Family Medicine
DX: R33.9 Retention of urine, unspecified; R32 Unspecified urinary incontinence; K62.5 Hemorrhage of anus and rectum; G70.00 Myasthenia gravis without (acute) exacerbation; R53.1 Weakness; R06.02 Shortness of breath; R19.7 Diarrhea, unspecified; R10.32 Left lower quadrant pain; R07.9 Chest pain, unspecified; E11.9 Type 2 diabetes mellitus without complications; F41.9 Anxiety disorder, unspecified; I10 Essential (primary) hypertension

== ENCOUNTER 2019-01-08 10:13 | Emergency (ER) | payer OTHER ==
[2019-01-08 10:20] VITALS: BP 160/85; TEMP 98.4; BMI 27.8
[2019-01-08] MEDS: URO-JET MUCOUSMEMB STA (10:40)
--- NOTE | 2019-01-08 12:10 | CT ---
EXAM: CT ABDOMEN AND PELVIS HISTORY: Blood in urine TECHNIQUE: CT abdomen and pelvis without intravenous contrast. Images were reconstructed using 3 mm section thickness. Reformations were prepared. COMPARISON: 05/21/2016 FINDINGS: Diagnostic limitations may exist without including contrast enhanced images. Artifact is present fro m the arms remaining down within the scanning field of view. No focal hepatic or splenic lesions are obvious. Gallbladder is absent. No pancreatic mass or inflammation is suspected. Normal adrenal g lands. Multiple differing sized renal cortical cystic appearing masses largest on the left and slightly over 6 cm. These appear relatively similar in size compared to the prior study. There is no hydronephro sis or nephrolithiasis. The ureters have no evidence of obstruction by calculus. The prostate is si gnificantly enlarged. There is a Whelan catheter within the urinary bladder which is decompressed. T he borders between the enlarged prostate and urinary bladder are indistinct on this unenhanced study. No definite urinary bladder mass is seen. There is no urinary bladder calculus. Moderately severe vascular calcifications are present. There is no gastric distension. What appears to represent the appendix has no evidence of inflammation. Bowel gas pattern is nonobstructive. N o ascites. The abdominal wall is intact without herniation. Bones reveal age-related degenerative c hanges of the spine. Lung bases are clear. There is no pneumoperitoneum. IMPRESSION: 1. No clear etiology for the patient's symptoms. Multiple cystic appearing masses of the kidneys, s imilar in size to previously seen. Significant prostate enlargement. Whelan catheter within the urin danelle bladder. See middle paragraph of report for detail. Further imaging could include CT urogram an d / or ultrasound of the kidneys. Urologic consultation is recommended. 2. Heavy vascular calcifications consistent with atherosclerosis and / or diabetic angiopathy.
--- NOTE | 2019-01-08 12:22 | ED.PDOC ---
General ED Provider: Dr. NEREIDA CAIN Chief Complaint: Urinary Problem Stated Complaint: hematuria history of enlarged prostate Time Seen by Physician: 10:30 Mode of Arrival: Wheelchair Information Source: Patient, Family Exam Limitations: No limitations Primary Care Provider: NEVILLE WOOD Nursing and Triage Documentation Reviewed and Agree: Yes Does patient meet sepsis criteria?: No System Inflammatory Response Syndrome: Not Applicable Sepsis Protocol: For patient's 13 years and over: Temp is 96.8 and below OR 101 and greater Pulse >90 BPM Resp >20/minute Acutely Altered Mental Status Are patient's symptoms suggestive of a new infection, such as: -Pneumonia -Skin, Soft Tissue -Endocarditis -UTI -Bone, Joint Infection -Implantable Device -Acute Abdominal Infection -Wound Infection -Meningitis -Blood Stream Catheter Infection -Unknown Complaint Exam - Complaint/Exam Patient Complains of: Reports: Dysuria Onset/Duration: this am noticed some blood in urine Symptoms Are: Still present Timing: Intermittent Initial Severity: Mild Current Severity: Mild Location of Pain: Reports: Suprapubic Character: Reports: Constant pressure, Cramping, Bloody urine Aggravating: Reports: Voiding Alleviating: Reports: None Associated Signs and Symptoms: Reports: Hematuria, Dysuria. Denies: Diaphoresis , Back pain, Fever, Constipation, Blood in stool, Rectal pain, Appetite change, Nausea, Vomiting, Penile swelling, Penile discharge, Decreased urine output, Increased urine frequency, Increased thirst, Decreased activity, Lethargy, Scrotal pain, Scrotal swelling, Abdominal Pain Last Voided: this am prior to arrival Testicular Torsion Risk Factors: Reports: None Surgical Obstruction Risk Factors: Reports: None Related Surgical History: Reports: None Abdominal Findings: Present: None, Other Prostate Exam: Enlarged Differential Diagnoses: UTI, Other (hematuria) Review of Systems - Review Of Systems Constitutional: Reports: No symptoms Eyes: Reports: No symptoms Ears, Nose, Mouth, Throat: Reports: No symptoms Respiratory: Reports: No symptoms Cardiac: Reports: No symptoms GI: Reports: Abdominal pain : Reports: Hematuria Musculoskeletal: Reports: No symptoms Skin: Reports: No symptoms Neurological: Reports: No symptoms Endocrine: Reports: No symptoms Hematologic/Lymphatic: Reports: No symptoms All Other Systems: Reviewed and Negative Past Medical History - Past Medical History Previously Healthy: Yes Endocrine: Reports: DM 2 Cardiovascular: Reports: Hypertension Respiratory: Reports: COPD Hematological: 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 ) Gastrointestinal: Reports: None Genitourinary: Reports: Unknown Neuro/Psych: Reports: None Musculoskeletal: Reports: Back Pain, Joint Pain, Other (Myesthenia Gravis ) Cancer: Reports: None - Surgical History General Surgical History: Reports: Unknown - Family History Family History: Reports: Unknown - Social History Smoking Status: Never smoker Hx Substance Use: No Alcohol Screening: None Physical Exam - Physical Exam Appearance: Well-appearing, No pain distress, Well-nourished Ill-appearing: Mild Pain Distress: Mild Eyes: SHIRAZ, EOMI, Conjunctiva clear ENT: Ears normal, Nose normal, Oropharynx normal Respiratory: Airway patent, Breath sounds clear, Breath sounds equal, Respirations nonlabored Cardiovascular: RRR, Pulses normal, No rub, No murmur GI/: Soft, Nontender, No masses, Bowel sounds normal, No Organomegaly Musculoskeletal: Normal strength, ROM intact, No edema, No calf tenderness Skin: Warm, Dry, Normal color Neurological: Sensation intact, Motor intact, Reflexes intact, Cranial nerves intact, Alert, Oriented Psychiatric: Affect appropriate, Mood appropriate Interpretation - Radiology Interpretation Radiology Interpretation By: Radiologist Radiology Results: No acute changes Exam Interpreted: CT Scan Re-Evaluation - Re-Evaluation Time of Re-Evaluation: 12:23 (450 ml dranied immediately bloody urine ) Status: Improved Vital Signs Stable: Yes Pain Level: 0 Appearance: NAD Lungs: Clear Skin: Warm and Dry Neuro: Alert and Oriented X3 CV: RRR Physician Notification - Case Discussed Physician Notified: pmd Time of Notification: 12:23 (place on dox ask the skilled nursing to flush harley and neomyocin irrigation) Critical Care Note - Critical Care Note Total Time (mins): 0 Course - Course Hematology/Chemistry: 01/08/19 11:00 01/08/19 11:00 Orders, Labs, Meds: Lab Review 01/08/19 01/08/19 01/08/19 10:50 11:00 11:00 WBC 6.02 RBC 4.46 L Hgb 13.1 L Hct 40.8 L MCV 91.5 MCH 29.4 MCHC 32.1 RDW Coeff of Marissa 12.8 Plt Count 221 Immature Gran % (Auto) 0.7 Neut % (Auto) 72.9 Lymph % (Auto) 10.5 [place] % (Auto) 10.6 H Eos % (Auto) 4.0 Baso % (Auto) 1.3 Immature Gran # (Auto) 0.0 Neut # (Auto) 4.4 Lymph # (Auto) 0.6 [place] # (Auto) 0.6 Eos # (Auto) 0.2 Baso # (Auto) 0.1 Sodium 130.8 L Potassium 4.38 Chloride 96.9 L Carbon Dioxide 30.8 H Anion Gap 7.48 BUN 19.2 Creatinine 0.82 Estimated GFR (MDRD) 89.00 BUN/Creatinine Ratio 23.41 Glucose 291.3 H Lactic Acid Calcium 8.86 Total Bilirubin 0.52 AST 32.8 ALT 21.7 Alkaline Phosphatase 70.2 Total Protein 6.51 Albumin 3.46 L Globulin 3.05 Albumin/Globulin Ratio 1.13 Procalcitonin Urine Color Red Urine Clarity Cloudy Urine pH 7.0 Ur Specific Fraser 1.020 Urine Protein 1+ Urine Glucose (UA) 2+ Urine Ketones Negative Urine Blood 3+ Urine Nitrite Negative Urine Bilirubin 1+ Urine Urobilinogen 0.2 Ur Leukocyte Esterase Negative Urine Microscopic RBC Tntc Urine Microscopic WBC 0-2 Ur Squamous Epith Cells Not present Urine Bacteria Trace 01/08/19 01/08/19 11:00 11:00 WBC RBC Hgb Hct MCV MCH MCHC RDW Coeff of Marissa Plt Count Immature Gran % (Auto) Neut % (Auto) Lymph % (Auto) [place] % (Auto) Eos % (Auto) Baso % (Auto) Immature Gran # (Auto) Neut # (Auto) Lymph # (Auto) [place] # (Auto) Eos # (Auto) Baso # (Auto) Sodium Potassium Chloride Carbon Dioxide Anion Gap BUN Creatinine Estimated GFR (MDRD) BUN/Creatinine Ratio Glucose Lactic Acid 2.07 Calcium Total Bilirubin AST ALT Alkaline Phosphatase Total Protein Albumin Globulin Albumin/Globulin Ratio Procalcitonin 0.09 Urine Color Urine Clarity Urine pH Ur Specific Fraser Urine Protein Urine Glucose (UA) Urine Ketones Urine Blood Urine Nitrite Urine Bilirubin Urine Urobilinogen Ur Leukocyte Esterase Urine Microscopic RBC Urine Microscopic WBC Ur Squamous Epith Cells Urine Bacteria Orders Category Date Time Status EKG-(ED ONLY) Stat CARDIO 01/08/19 10:26 Completed Bladder [ED BLADDER SCAN] .ONCE EMERGENCY 01/08/19 10:26 Active Harley [ED CATHETER INSERTION AND CARE] .ONCE EMERGENCY 01/08/19 10:26 Active CBC W/ AUTO DIFF Stat LAB 01/08/19 11:00 Completed COMPREHENSIVE METABOLIC PANEL Stat LAB 01/08/19 11:00 Completed LACTIC ACID Stat LAB 01/08/19 11:00 Completed PROCALCITONIN Stat LAB 01/08/19 11:00 Completed URINALYSIS C & S IF INDICATED Stat LAB 01/08/19 10:50 Completed Lidocaine (Uro-Jet) [Uro-Jet] MEDS 01/08/19 10:26 Discontinued 10 ml [id number] ONCE STA CT ABD/PEL WO RENAL STONE PROT Stat RADS 01/08/19 10:25 Completed Medications Discontinued Medications Generic Name Dose Route Start Last Admin Trade Name Freq PRN Reason Stop Dose Admin Lidocaine HCl 10 ml 01/08/19 10:26 01/08/19 10:40 Uro-Jet [id number] 01/08/19 10:27 10 ml ONCE STA Administration Vital Signs: Temp Pulse Resp BP Pulse Ox 01/08/19 10:14 98.4 F 84 18 160/85 H 96 Departure - Departure Time of Disposition: 12:24 Disposition: HOME SELF-CARE Discharge Problem: Urinary symptoms, Urinary tract infectious disease, Prostate enlargement Hematuria Qualifiers: Hematuria type: gross Qualified Code(s): R31.0 - Gross hematuria Instructions: Urinary Tract Infection in Men (ED), Hematuria (ED) Condition: Good Pt referred to PMD for follow-up: Yes IPMP verified?: No Additional Instructions: Please call your Family Physician as soon as possible to schedule a follow-up appointment. doctor rhea covering for the PMD would like bladder irrigations with neomyocin and doxycycline 100mg bid Allergies/Adverse Reactions: Allergies cephalexin [From Keflex] Adverse Reaction (Verified 05/21/16 07:36) Itching erythromycin base Adverse Reaction (Verified 05/21/16 07:36) Iodinated Contrast Media [Iodinated Contrast Media - Oral and] Adverse Reaction (Verified 05/21/16 07:36) Unconsciousness levofloxacin [From Levaquin] Adverse Reaction (Verified 05/21/16 07:36) Hives Penicillins Adverse Reaction (Verified 05/21/16 07:36) Rash povidone-iodine [From Betadine] Adverse Reaction (Verified 05/21/16 07:36) procaine [From Novocain] Adverse Reaction (Verified 05/21/16 07:36) soap [From Betadine] Adverse Reaction (Verified 05/21/16 07:36) Sulfa (Sulfonamide Antibiotics) Adverse Reaction (Verified 05/21/16 07:36) Home Medications: Ambulatory Orders Albuterol Sulfate [Proair Hfa] 2 puff IH BID 05/21/16 Alprazolam [Xanax] 0.25 mg PO BID 05/21/16 Aspirin [Ecotrin] 81 mg PO DAILY 05/21/16 Atenolol 100 mg PO DAILY 05/21/16 Finasteride 5 mg PO DAILY 05/21/16 Fluticasone Propionate 220 Mcg [Flovent Hfa 220 Mcg] 2 puff INH BID 05/21/16 Fluticasone Propionate [Flovent Diskus] 50 mcg IH BID 05/21/16 Pyridostigmine [place] 60 mg PO TIDWM 05/21/16 Tamsulosin HCl [Flomax] 1 cap PO BID 05/21/16 Thiamine HCl [B-1] 100 mg PO DAILY 05/21/16 Cholecalciferol (Vitamin D3) [Vitamin D] 1,000 unit PO DAILY 06/06/16 Warfarin Sodium [Coumadin] 3 mg PO DIRECTED 06/06/16 Potassium Chloride [K-Dur] 20 meq PO DAILY #30 tab 06/14/16 Insulin Lispro [Humalog Kwikpen] 1 unit SQ DIRECTED 01/01/19 Furosemide [Lasix] 20 mg PO BID 01/02/19 Nitroglycerin [Nitrostat] 0.4 mg SL Q5MIN X 3 DOSES PRN 01/02/19 Pyridostigmine [place] 1 tab PO BEDTIME 01/02/19 Disposition Discussed With: Patient, Family
== END 2019-01-08 13:10 | disposition home or self-care (01) ==
LOC: ED 10:13
DX: N39.0 Urinary tract infection, site not specified (principal); R31.0 Gross hematuria; N40.0 Benign prostatic hyperplasia without lower urinary tract symptoms; E11.9 Type 2 diabetes mellitus without complications; I10 Essential (primary) hypertension; Z79.01 Long term (current) use of anticoagulants; Z79.4 Long term (current) use of insulin; Z79.899 Other long term (current) drug therapy
CPT/HCPCS: 36415; 80053; 81001; 83605; 84145; 85025; 93005; 93010; 99283